=== PATIENT | male | born 1950 | race Caucasian/White ===

== ENCOUNTER 2019-11-02 21:58 | Inpatient (IN) | payer MEDICARE ==
[~2019-11-02] VITALS: Ht 185.4 cm; Wt 125.2 kg
[2019-11-02] MEDS ORDERED: PANTOPRAZOLE IV PUSH 40 MG VIAL. IVP ONE ×3 (22:15→23:00)
[2019-11-02 22:30] LABS: BASO # 0.1 x10^3/uL (0.0-0.2); BASO % 1 % (0-3); EOS % 0 % (0-3); HEMATOCRIT 33.5 % (39.0-53.0); HEMOGLOBIN 11.5 g/dL (13.0-17.5); LYMPH # 2.5 x10^3/uL (1.0-4.8); LYMPH % 28 % (24-48); MEAN CORPUSCULAR HEMOGLOBIN 29 pg (25-35); MEAN CORPUSCULAR HGB CONC 34 g/dL (31-37); MEAN CORPUSCULAR VOLUME 84 fL (79-100); MONO # 0.5 x10^3/uL (0.0-1.1); MONO % 6 % (0-9); NEUT % 66 % (31-73); PLATELET COUNT 203 x10^3/uL (140-400)
[2019-11-02 22:39] LABS: CALCIUM 8.4 mg/dL (8.5-10.1); CREATININE 0.9 mg/dL (0.7-1.3); GFR 83.9; POTASSIUM 4.3 mmol/L (3.5-5.1)
[2019-11-02 22:42] LABS: PROTHROMBIN TIME PATIENT 14.3 SEC (11.7-14.0)
[2019-11-02 22:46] LABS: ALBUMIN 3.4 g/dL (3.4-5.0); ALBUMIN/GLOBULIN RATIO 1.2 (1.0-1.7); TOTAL BILIRUBIN 0.4 mg/dL (0.2-1.0); TOTAL PROTEIN 6.2 g/dL (6.4-8.2)
--- NOTE | 2019-11-02 22:47 | PHYS DOC ---
General Adult EDM: Chief Complaint: TARRY STOOL HPI: HPI: Patient is a 68 year old male with a past medical history hypertension hyperlipidemia ulcers presents for evaluation of dark black stools. Patient states onset of dark stools approximately 3 to 4 hours ago. Patient states had associated dizziness. Patient does admit to using pain medications this morning but states to his knowledge it was not an NSAID. Review of Systems: Review of Systems: Constitutional: Denies fever or chills. [] Eyes: Denies change in visual acuity. [] HENT: Denies nasal congestion or sore throat. [] Respiratory: Denies cough or shortness of breath. [] Cardiovascular: Denies chest pain or edema. [] GI: Denies abdominal pain, , vomiting, bloody stools positive nausea : Denies dysuria. [] Musculoskeletal: Denies back pain or joint pain. [] Integument: Denies rash. [] Neurologic: Denies headache, focal weakness or sensory changes. [] Endocrine: Denies polyuria or polydipsia. [] Lymphatic: Denies swollen glands. [] Psychiatric: Denies depression or anxiety. [] Heart Score: Risk Factors: Risk Factors: DM, Current or recent (<one month) smoker, HTN, HLP, family h istory of CAD, obesity. Risk Scores: Score 0 - 3: 2.5% MACE over next 6 weeks - Discharge Home Score 4 - 6: 20.3% MACE over next 6 weeks - Admit for Clinical Observation Score 7 - 10: 72.7% MACE over next 6 weeks - Early Invasive Strategies Current Medications: Current Medications Medications (Trade) Dose Ordered Sig/Juan C Start Time Stop Time Status Last Admin Dose Admin Pantoprazole Sodium (PROTONIX VIAL for IV PUSH) 80 mg 1X ONCE 11/02/19 23:00 11/02/19 23:01 Pantoprazole Sodium 80 mg/ Sodium Chloride 100 ml @ 10 mls/hr Q10H 11/02/19 23:00 11/03/19 22:59 Allergies: Allergies: Allergies Coded Allergies Type Severity Reaction Last Updated Verified No Known Drug Allergies 11/02/19 No Physical Exam: PE: Constitutional: Well developed, well nourished, no acute distress, non-toxic appearance. [] HENT: Normocephalic, atraumatic, bilateral external ears normal, oropharynx moist, no oral exudates, nose normal. [] Eyes: PERRLA, EOMI, conjunctiva normal, no discharge. [] Neck: Normal range of motion, no tenderness, supple, no stridor. [] Cardiovascular:Heart rate regular rhythm, no murmur [] Lungs & Thorax: Bilateral breath sounds clear to auscultation [] Abdomen: Bowel sounds normal, soft, no tenderness, no masses, no pulsatile m asses. [] Skin: Warm, dry, no erythema, no rash. [] Back: No tenderness, no CVA tenderness. [] Extremities: No tenderness, no cyanosis, no clubbing, ROM intact, no edema. [] Neurologic: Alert and oriented X 3, normal motor function, normal sensory function, no focal deficits noted. [] Psychologic: Affect normal, judgement normal, mood normal. [] Current Patient Data: Labs: Laboratory Tests Test 11/02/19 22:12 White Blood Count 9.0 x10^3/uL (4.0-11.0) Red Blood Count 4.00 x10^6/uL (4.30-5.70) L Hemoglobin 11.5 g/dL (13.0-17.5) L Hematocrit 33.5 % (39.0-53.0) L Mean Corpuscular Volume 84 fL (79-100) Mean Corpuscular Hemoglobin 29 pg (25-35) Mean Corpuscular Hemoglobin Concent 34 g/dL (31-37) Red Cell Distribution Width 14.0 % (11.5-14.5) Platelet Count 203 x10^3/uL (140-400) Neutrophils (%) (Auto) 66 % (31-73) Lymphocytes (%) (Auto) 28 % (24-48) Monocytes (%) (Auto) 6 % (0-9) Eosinophils (%) (Auto) 0 % (0-3) Basophils (%) (Auto) 1 % (0-3) Neutrophils # (Auto) 6.0 x10^3/uL (1.8-7.7) Lymphocytes # (Auto) 2.5 x10^3/uL (1.0-4.8) Monocytes # (Auto) 0.5 x10^3/uL (0.0-1.1) Eosinophils # (Auto) 0.0 x10^3/uL (0.0-0.7) Basophils # (Auto) 0.1 x10^3/uL (0.0-0.2) Sodium Level 144 mmol/L (136-145) Potassium Level 4.3 mmol/L (3.5-5.1) Chloride Level 109 mmol/L (98-107) H Carbon Dioxide Level 25 mmol/L (21-32) Anion Gap 10 (6-14) Blood Urea Nitrogen 46 mg/dL (8-26) H Creatinine 0.9 mg/dL (0.7-1.3) Estimated GFR (Cockcroft-Gault) 83.9 BUN/Creatinine Ratio 51 (6-20) H Glucose Level 154 mg/dL (70-99) H Calcium Level 8.4 mg/dL (8.5-10.1) L Total Bilirubin Pending Aspartate Amino Transferase (AST) Pending Alanine Aminotransferase (ALT) Pending Alkaline Phosphatase Pending Total Protein Pending Albumin Pending Albumin/Globulin Ratio Pending Laboratory Tests 11/02/19 22:12 Laboratory Tests 11/02/19 22:12 EKG: EKG: [] Radiology/Procedures: Radiology/Procedures: [] Course & Med Decision Making: Course & Med Decision Making Pertinent Labs and Imaging studies reviewed. (See chart for details) [] Patient was evaluated for chief complaint. Work-up consisted of laboratory analysis. Results reviewed and discussed with patient. Treatment included Protonix. Patient admitted to the hospital for further evaluation and treatment. Dragon Disclaimer: Salima Disclaimer: This electronic medical record was generated, in whole or in part, using a voice recognition dictation system. Departure Departure Impression: Primary Impression: GI bleed Disposition: ADMITTED INPATIENT Condition: STABLE Justicifation of Admission Dx: Justifications for Admission: Justification of Admission Dx: Yes Comments: GI BLEED MARIA ISABEL FANG I DO Nov 02, 2019 22:47
[2019-11-02] MEDS: IV NORMAL SALINE 1000ML BAG 1,000 ML IV SCH (22:48)
[2019-11-02 22:52] LABS: FECAL OB PT POSITIVE (NEG)
[2019-11-02] MEDS: PANTOPRAZOLE SODIUM IV DRIP 80 MG in IV NORMAL SALINE 100ML 100 ML IV SCH (22:53)
[2019-11-02] MEDS ORDERED: ONDANSETRON PF 4 MG/2 ML VIAL. IV PRN (23:00)
[2019-11-02] MEDS ORDERED: ONDANSETRON PF 4 MG/2 ML VIAL. IVP ONE (23:00)
--- NOTE | 2019-11-02 23:50 | NUR ---
The patient, ANDREA JACOBSEN, 68 y/o, M admitted by LOU RYDER MD, was given written information regarding hospital policies, unit procedures and contact persons. Valuables were checked and left with him.
[2019-11-03] VITALS (7 sets, daily range): BP systolic 118–145; BP diastolic 57–98
[2019-11-03] MEDS ORDERED: TAMS0.4C97 PO (02:19)
[2019-11-03] MEDS ORDERED: AMLO10TA8 PO (02:19)
[2019-11-03] MEDS ORDERED: PRAV20TA2 PO (02:19)
[2019-11-03] MEDS ORDERED: FINA5TAB4 PO (02:19)
[2019-11-03 05:51] LABS: BASO % 0 % (0-3); EOS % 0 % (0-3); HEMATOCRIT 31.8 % (39.0-53.0); HEMOGLOBIN 10.9 g/dL (13.0-17.5); LYMPH # 2.8 x10^3/uL (1.0-4.8); LYMPH % 26 % (24-48); MEAN CORPUSCULAR HEMOGLOBIN 29 pg (25-35); MEAN CORPUSCULAR HGB CONC 34 g/dL (31-37); MEAN CORPUSCULAR VOLUME 84 fL (79-100); MONO # 0.6 x10^3/uL (0.0-1.1); MONO % 5 % (0-9); NEUT # 7.6 x10^3/uL (1.8-7.7); NEUT % 69 % (31-73); PLATELET COUNT 205 x10^3/uL (140-400); RED BLOOD COUNT 3.78 x10^6/uL (4.30-5.70); RED CELL DISTRIBUTION WIDTH 14.4 % (11.5-14.5)
[2019-11-03 06:24] LABS: ALBUMIN 3.2 g/dL (3.4-5.0); ALBUMIN/GLOBULIN RATIO 1.2 (1.0-1.7); CALCIUM 8.4 mg/dL (8.5-10.1); CREATININE 0.9 mg/dL (0.7-1.3); GFR 83.9; POTASSIUM 4.4 mmol/L (3.5-5.1); TOTAL BILIRUBIN 0.3 mg/dL (0.2-1.0); TOTAL PROTEIN 5.9 g/dL (6.4-8.2)
--- NOTE | 2019-11-03 08:34 | PDOC1 ---
History and Physical Date of Admission Date of Admission DATE: 11/03/19 TIME: 08:33 Identification/Chief Complaint Chief Complaint seen in er with heme pos stools, 68 year old male with a past medical history hypertension hyperlipidemia ulcers seen for evaluation of dark black stools. // dark stools approximately 3 to 4 hours [facility] Patient states had associated dizziness. Symptoms similar to past ulcers -, DISCOMFORT Past Medical History Cardiovascular: HTN GI: GERD, Peptic Ulcer disease Family History Family History: Hypertension Social History Smoke: <1 pack per day ALCOHOL: occassional Drugs: None Current Problem List Problem List Problems Medical Problems: (1) GI bleed Status: Acute Current Medications Current Medications Current Medications Pantoprazole Sodium (PROTONIX VIAL for IV PUSH) 40 mg 1X ONCE IVP ; Start 11/02/19 at 22:15; Stop 11/02/19 at 22:16; Status UNV Pantoprazole Sodium 80 mg/ Sodium Chloride 100 ml @ 10 mls/hr Q10H IV Last administered on 11/02/19at 22:53; Start 11/02/19 at 23:00; Stop 11/03/19 at 22:59 Pantoprazole Sodium (PROTONIX VIAL for IV PUSH) 40 mg 1X ONCE IVP ; Start 11/02/19 at 22:15; Stop 11/02/19 at 22:16; Status UNV Pantoprazole Sodium (PROTONIX VIAL for IV PUSH) 80 mg 1X ONCE IVP Last adminis tered on 11/02/19at 22:54; Start 11/02/19 at 23:00; Stop 11/02/19 at 23:01; Status DC Ondansetron HCl (Zofran) 4 mg PRN Q8HRS PRN IV NAUSEA/VOMITING 1ST CHOICE; Start 11/02/19 at 23:00; Stop 11/03/19 at 22:59 Sodium Chloride 1,000 ml @ 75 mls/hr [id number] IV Last administered on 11/02/19at 22:48; Start 11/02/19 at 22:48; Stop 11/03/19 at 22:47 Ondansetron HCl (Zofran) 4 mg 1X ONCE IVP Last administered on 11/02/19at 23:02; Start 11/02/19 at 23:00; Stop 11/02/19 at 23:01; Status DC Active Scripts Active Reported Flomax (Tamsulosin Hcl) 0.4 Mg Cap.er.24h 1 Cap PO DAILY Finasteride 5 Mg Tablet 1 Tab PO DAILY Pravastatin Sodium 20 Mg Tablet 1 Tab PO DAILY Amlodipine Besylate 10 Mg Tablet 10 Mg PO DAILY Allergies Allergies: Coded Allergies: No Known Drug Allergies (Unverified , 11/03/19) ROS Review of System Constitutional: Denies fever or chills. [] Eyes: Denies change in visual acuity. [] HENT: Denies nasal congestion or sore throat. [] Respiratory: Denies cough or shortness of breath. [] Cardiovascular: Denies chest pain or edema. [] GI: Denies abdominal pain, , vomiting, bloody stools positive nausea : Denies dysuria. [] Musculoskeletal: Denies back pain or joint pain. [] Integument: Denies rash. [] Neurologic: Denies headache, focal weakness or sensory changes. [] Endocrine: Denies polyuria or polydipsia. [] Lymphatic: Denies swollen glands. [] Psychiatric: Denies depression or anxiety. [] 14 PT ROS OTHERWISE NEG Respiratory: No: Cough, Hemoptysis, Orthopnea, Pleuritic Pain, Shortness of breath, SOB with excertion, Sputum Changes, Stridor, Tachypnea, Wheezing, Other Cardiovascular: No Chest Pain, No Palpitations, No Orthopnea, No Paroxysmal Noc. Dyspnea, No Edema, No Lt Headedness, No Other Gastrointestinal: Yes Abdominal Pain, Yes Hematochezia Physical Exam Physical Exam Constitutional: Well developed, well nourished, no acute distress, non-toxic a ppearance. [] HENT: Normocephalic, atraumatic, bilateral external ears normal, oropharynx moist, no oral exudates, nose normal. [] Eyes: PERRLA, EOMI, conjunctiva normal, no discharge. [] Neck: Normal range of motion, no tenderness, supple, no stridor. [] Cardiovascular:Heart rate regular rhythm, no murmur [] Lungs & Thorax: Bilateral breath sounds clear to auscultation [] Abdomen: Bowel sounds normal, soft, no tenderness, no masses, no pulsatile masses. [] Skin: Warm, dry, no erythema, no rash. [] Back: No tenderness, no CVA tenderness. [] Extremities: No tenderness, no cyanosis, no clubbing, ROM intact, no edema. [] Neurologic: Alert and oriented X 3, normal motor function, normal sensory function, no focal deficits noted. [] Psychologic: Affect normal, judgment normal, mood normal. [] General: Alert, Oriented X3, Cooperative, No acute distress HEENT: Atraumatic, EOMI, Mucous membr. moist/pink Heart: RRR, no gallops Abdomen: Normal bowel sounds, Soft, No tenderness Rectal Exam: deferred PELVIC: Examination not indicated Extremities: No cyanosis Neuro: Normal speech, Strength at 5/5 X4 ext, Sensation intact, Cranial nerves 3-12 NL Psych/Mental Status: Mental status NL, Mood NL Vitals Vitals Vital Signs Date Time Temp Pulse Resp B/P (MAP) Pulse Ox O2 Delivery O2 Flow Rate FiO2 11/03/19 07:00 98.2 80 18 132/98 (109) 98 Room Air 98.2 Labs Labs Laboratory Tests Test 11/02/19 22:12 11/02/19 22:38 11/03/19 05:05 White Blood Count 9.0 x10^3/uL (4.0-11.0) 11.0 x10^3/uL (4.0-11.0) Red Blood Count 4.00 x10^6/uL (4.30-5.70) 3.78 x10^6/uL (4.30-5.70) Hemoglobin 11.5 g/dL (13.0-17.5) 10.9 g/dL (13.0-17.5) Hematocrit 33.5 % (39.0-53.0) 31.8 % (39.0-53.0) Mean Corpuscular Volume 84 fL (79-100) 84 fL (79-100) Mean Corpuscular Hemoglobin 29 pg (25-35) 29 pg (25-35) Mean Corpuscular Hemoglobin Concent 34 g/dL (31-37) 34 g/dL (31-37) Red Cell Distribution Width 14.0 % (11.5-14.5) 14.4 % (11.5-14.5) Platelet Count 203 x10^3/uL (140-400) 205 x10^3/uL (140-400) Neutrophils (%) (Auto) 66 % (31-73) 69 % (31-73) Lymphocytes (%) (Auto) 28 % (24-48) 26 % (24-48) Monocytes (%) (Auto) 6 % (0-9) 5 % (0-9) Eosinophils (%) (Auto) 0 % (0-3) 0 % (0-3) Basophils (%) (Auto) 1 % (0-3) 0 % (0-3) Neutrophils # (Auto) 6.0 x10^3/uL (1.8-7.7) 7.6 x10^3/uL (1.8-7.7) Lymphocytes # (Auto) 2.5 x10^3/uL (1.0-4.8) 2.8 x10^3/uL (1.0-4.8) Monocytes # (Auto) 0.5 x10^3/uL (0.0-1.1) 0.6 x10^3/uL (0.0-1.1) Eosinophils # (Auto) 0.0 x10^3/uL (0.0-0.7) 0.0 x10^3/uL (0.0-0.7) Basophils # (Auto) 0.1 x10^3/uL (0.0-0.2) 0.0 x10^3/uL (0.0-0.2) Prothrombin Time 14.3 SEC (11.7-14.0) Prothromb Time International Ratio 1.2 (0.8-1.1) Activated Partial Thromboplast Time 21 SEC (24-38) Sodium Level 144 mmol/L (136-145) 145 mmol/L (136-145) Potassium Level 4.3 mmol/L (3.5-5.1) 4.4 mmol/L (3.5-5.1) Chloride Level 109 mmol/L (98-107) 112 mmol/L (98-107) Carbon Dioxide Level 25 mmol/L (21-32) 25 mmol/L (21-32) Anion Gap 10 (6-14) 8 (6-14) Blood Urea Nitrogen 46 mg/dL (8-26) 43 mg/dL (8-26) Creatinine 0.9 mg/dL (0.7-1.3) 0.9 mg/dL (0.7-1.3) Estimated GFR (Cockcroft-Gault) 83.9 83.9 BUN/Creatinine Ratio 51 (6-20) 48 (6-20) Glucose Level 154 mg/dL (70-99) 122 mg/dL (70-99) Calcium Level 8.4 mg/dL (8.5-10.1) 8.4 mg/dL (8.5-10.1) Total Bilirubin 0.4 mg/dL (0.2-1.0) 0.3 mg/dL (0.2-1.0) Aspartate Amino Transf (AST/SGOT) 18 U/L (15-37) 15 U/L (15-37) Alanine Aminotransferase (ALT/SGPT) 28 U/L (16-63) 22 U/L (16-63) Alkaline Phosphatase 74 U/L (46-116) 63 U/L (46-116) Troponin I Quantitative < 0.017 ng/mL (0.000-0.055) Total Protein 6.2 g/dL (6.4-8.2) 5.9 g/dL (6.4-8.2) Albumin 3.4 g/dL (3.4-5.0) 3.2 g/dL (3.4-5.0) Albumin/Globulin Ratio 1.2 (1.0-1.7) 1.2 (1.0-1.7) Stool Occult Blood Positive (NEG) Laboratory Tests Test 11/02/19 22:12 11/02/19 22:38 11/03/19 05:05 White Blood Count 9.0 x10^3/uL (4.0-11.0) 11.0 x10^3/uL (4.0-11.0) Red Blood Count 4.00 x10^6/uL (4.30-5.70) 3.78 x10^6/uL (4.30-5.70) Hemoglobin 11.5 g/dL (13.0-17.5) 10.9 g/dL (13.0-17.5) Hematocrit 33.5 % (39.0-53.0) 31.8 % (39.0-53.0) Mean Corpuscular Volume 84 fL (79-100) 84 fL (79-100) Mean Corpuscular Hemoglobin 29 pg (25-35) 29 pg (25-35) Mean Corpuscular Hemoglobin Concent 34 g/dL (31-37) 34 g/dL (31-37) Red Cell Distribution Width 14.0 % (11.5-14.5) 14.4 % (11.5-14.5) Platelet Count 203 x10^3/uL (140-400) 205 x10^3/uL (140-400) Neutrophils (%) (Auto) 66 % (31-73) 69 % (31-73) Lymphocytes (%) (Auto) 28 % (24-48) 26 % (24-48) Monocytes (%) (Auto) 6 % (0-9) 5 % (0-9) Eosinophils (%) (Auto) 0 % (0-3) 0 % (0-3) Basophils (%) (Auto) 1 % (0-3) 0 % (0-3) Neutrophils # (Auto) 6.0 x10^3/uL (1.8-7.7) 7.6 x10^3/uL (1.8-7.7) Lymphocytes # (Auto) 2.5 x10^3/uL (1.0-4.8) 2.8 x10^3/uL (1.0-4.8) Monocytes # (Auto) 0.5 x10^3/uL (0.0-1.1) 0.6 x10^3/uL (0.0-1.1) Eosinophils # (Auto) 0.0 x10^3/uL (0.0-0.7) 0.0 x10^3/uL (0.0-0.7) Basophils # (Auto) 0.1 x10^3/uL (0.0-0.2) 0.0 x10^3/uL (0.0-0.2) Prothrombin Time 14.3 SEC (11.7-14.0) Prothromb Time International Ratio 1.2 (0.8-1.1) Activated Partial Thromboplast Time 21 SEC (24-38) Sodium Level 144 mmol/L (136-145) 145 mmol/L (136-145) Potassium Level 4.3 mmol/L (3.5-5.1) 4.4 mmol/L (3.5-5.1) Chloride Level 109 mmol/L (98-107) 112 mmol/L (98-107) Carbon Dioxide Level 25 mmol/L (21-32) 25 mmol/L (21-32) Anion Gap 10 (6-14) 8 (6-14) Blood Urea Nitrogen 46 mg/dL (8-26) 43 mg/dL (8-26) Creatinine 0.9 mg/dL (0.7-1.3) 0.9 mg/dL (0.7-1.3) Estimated GFR (Cockcroft-Gault) 83.9 83.9 BUN/Creatinine Ratio 51 (6-20) 48 (6-20) Glucose Level 154 mg/dL (70-99) 122 mg/dL (70-99) Calcium Level 8.4 mg/dL (8.5-10.1) 8.4 mg/dL (8.5-10.1) Total Bilirubin 0.4 mg/dL (0.2-1.0) 0.3 mg/dL (0.2-1.0) Aspartate Amino Transf (AST/SGOT) 18 U/L (15-37) 15 U/L (15-37) Alanine Aminotransferase (ALT/SGPT) 28 U/L (16-63) 22 U/L (16-63) Alkaline Phosphatase 74 U/L (46-116) 63 U/L (46-116) Troponin I Quantitative < 0.017 ng/mL (0.000-0.055) Total Protein 6.2 g/dL (6.4-8.2) 5.9 g/dL (6.4-8.2) Albumin 3.4 g/dL (3.4-5.0) 3.2 g/dL (3.4-5.0) Albumin/Globulin Ratio 1.2 (1.0-1.7) 1.2 (1.0-1.7) Stool Occult Blood Positive (NEG) Images Images DPOA REVIEW 19 MIN What Is a Power of Gyroscopic Instrument Tester? A power of research attorney (POA) is a legal document giving one person (the agent or [id number]) the power to act for another person (the principal). The agent can have broad legal authority or limited authority to make legal decisions about the principal's property, finances or medical care. The power of research attorney is frequently used in the event of a principal's illness or disability, or when the principal can't be present to sign necessary legal documents for financial transactions. A power of research attorney can end for a number of reasons, such as when the principal dies, the principal revokes it, a court invalidates it, the principal divorces their spouse, who happens to be the agent, or the agent can no longer carry out the outlined responsibilities. Conventional POAs lapse when the creator becomes incapacitated, but a durable POA remains in force to enable the agent to manage the creators affairs, and a springing POA comes into effect only if and when the creator of the POA becomes incapacitated. A medical or healthcare POA enables an agent to make medical decisions on behalf of an incapacitated person. Gerard Takeaways A power of research attorney (POA) is a legal document giving one person, the agent or [id number] the power to act for another person, the principal. The agent can have broad legal authority or limited authority to make decisions about the principal's property, finances or medical care. The power of research attorney is often used when a principal becomes ill or disabled, or when they can't be present to sign necessary legal documents for financial transactions. Understanding Power of Gyroscopic Instrument Tester A power of research attorney should be considered when planning for long-term care. There are different types of POAs that fall under either a general power of research attorney or limited power of research attorney. A general power of research attorney acts on behalf of the principal in any and all matters, as allowed by the state. The agent under a general POA agreement may be authorized to take care of issues such as handling bank accounts, signing checks, selling property and assets like stocks, f A limited power of research attorney gives the agent the power to act on behalf of the principal in specific matters or events. For example, the limited POA may explicitly state that the agent is only allowed to manage the principal's snf accounts. A limited POA may also be limited to a specific period of time (e.g., if the principal will be out of the country for, say, two years). Most wallace of research attorney documents allow an agent to represent the principal in all property and financial matters as long as the principals mental state of mind is good. If a situation occurs where the principal becomes incapable of making decisions for him or herself, the POA agreement would automatically end. However, someone who wants the POA to remain in effect after the persons health deteriorates would need to sign a durable power of research attorney (DPOA). What is an advance directive? An advance directive is a legal document that says how you want to be cared for if you are unable to make decisions. You can include what medical treatments you would want and who you would trust to make decisions for you. An advance directive can also include other legal documents. A living will is a list of treatment preferences. It can be used to indicate whether you would want cardiopulmonary resuscitation (CPR), tube feedings, a breathing machine, or certain medicines, like antibiotics. The durable power of research attorney for health care document identifies the person you would want to make medical decisions for you. This person is also called a proxy. Your proxy should be familiar with your values and wishes. How do I get started? You can get advance directive documents for your state from your doctor's office or from http://www.caringinfo.org. Review the forms, and ask your doctor if you have any questions. Pick a person to be your proxy, and talk it over with that person. gastric ulcer s/p bx/ERBE APC laser duodenal polyp s/p bx Plan PPI therapy for two months Operative Note Operative Note Operative Note EGD with biopsy/APC laser Meds Propofol per anesthesia Pre-op dx melena /acute blood loss anemia post-op dx gastric ulcer s/p bx/ERBE APC laser duodenal polyp s/p bx Plan PPI therapy for two months advance diet in am if Hg stable Serial Hgs AGNIESZKA ACUNA MD VTE Prophylaxis Ordered VTE Prophylaxis Devices: Yes VTE Pharmacological Prophylaxi: Contraindicated Assessment/Plan Assessment/Plan Impression: GI bleed, acute gastric ulcer s/p bx/ERBE APC laser duodenal polyp s/p bx PPI therapy for two months MORBID OBESITY TOBACCO ABUSE DISORDER ACUTE BLOOD LOSS ANEMIA ADMITTED EGD IV PROTONIX gi consult NPO 67 MIN PT EXAM, CHART REVIEW, > 50% OF TIME SPENT WITH EXAM, CHART REVIEW, PT CARE COORDINATION Justifications for Admission Other Justification FULBRIGHT,DEYSI W MD Nov 03, 2019 08:34
[2019-11-03] MEDS ORDERED: IV RINGERS,LACTATED 1000ML 1,000 ML IV ONE (09:15)
[2019-11-03] MEDS: PANTOPRAZOLE SODIUM IV DRIP 80 MG in IV NORMAL SALINE 100ML 100 ML IV SCH ×2 (09:20→19:49)
--- NOTE | 2019-11-03 09:26 | PDOC2 ---
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 Reports some sharp right upper back pain that felt like a kidney stone and vague mid abdomen discomfort x 2 days, then yesterday noted some dark stools and had some dark emesis. Symptoms similar to past ulcers - first in [place] in 1970s, says almost needed surgery but resolved with medication. Recurred in 1988 in [place] - required transfusion and "they didn't want to biopsy it and said I might need surgery" but again resolved w/ medication. Recurred a third time in 1998 in [place] - this time he had a "bacteria" (?H. pylori) that was treated w/ medication. He was also started on an acid pill which he has taken every day since. Initially ranitidine, then ch anged to Tagamet. H/o GERD controlled w/ H2 sung. No dysphagia, chronic n/v or abd pain, diarrhea, constipation, change in appetite. Has gained weight. Normal colonoscopy at some point. No GB, liver, or pancreas history. Occasional ibuprofen and something else OTC for aches and pains. Admitting Hgb 11.5 (now 10.9), MCV 84, normal plt and INR, BUN 46 (now 43), +Hemoccult. No imaging. PMH: PMH: HTN, ROBERT w/ CPAP, nephrolithiasis, HLD, BPH, COVID, GERD, PUD lithotripsy, ureteral stent FH: Family History: Cancer (dfather - bladder cancer; brothers - prostate, lung, and unknown type), CAD Social History: Smoke: <1 pack per day ALCOHOL: occassional Drugs: None ROS: GEN: Denies fevers, chills, sweats HEENT: Denies blurred vision, sore throat CV: Denies chest pain RESP: Denies shortness of air, cough GI: Per HPI : Denies hematuria, dysuria ENDO: +weight gain NEURO: Denies confusion, dizziness MSK: Denies weakness, joint pain/swelling SKIN: Denies jaundice, pruritus Vitals: Vitals: Vital Signs Date Time Temp Pulse Resp B/P (MAP) Pulse Ox O2 Delivery O2 Flow Rate FiO2 11/03/19 09:07 Room Air 11/03/19 07:00 98.2 80 18 132/98 (109) 98 98.2 Labs: Labs: Laboratory Tests Test 11/02/19 22:12 11/02/19 22:38 11/03/19 05:05 11/03/19 08:25 White Blood Count 9.0 x10^3/uL (4.0-11.0) 11.0 x10^3/uL (4.0-11.0) Red Blood Count 4.00 x10^6/uL (4.30-5.70) 3.78 x10^6/uL (4.30-5.70) Hemoglobin 11.5 g/dL (13.0-17.5) 10.9 g/dL (13.0-17.5) Hematocrit 33.5 % (39.0-53.0) 31.8 % (39.0-53.0) Mean Corpuscular Volume 84 fL (79-100) 84 fL (79-100) Mean Corpuscular Hemoglobin 29 pg (25-35) 29 pg (25-35) Mean Corpuscular Hemoglobin Concent 34 g/dL (31-37) 34 g/dL (31-37) Red Cell Distribution Width 14.0 % (11.5-14.5) 14.4 % (11.5-14.5) Platelet Count 203 x10^3/uL (140-400) 205 x10^3/uL (140-400) Neutrophils (%) (Auto) 66 % (31-73) 69 % (31-73) Lymphocytes (%) (Auto) 28 % (24-48) 26 % (24-48) Monocytes (%) (Auto) 6 % (0-9) 5 % (0-9) Eosinophils (%) (Auto) 0 % (0-3) 0 % (0-3) Basophils (%) (Auto) 1 % (0-3) 0 % (0-3) Neutrophils # (Auto) 6.0 x10^3/uL (1.8-7.7) 7.6 x10^3/uL (1.8-7.7) Lymphocytes # (Auto) 2.5 x10^3/uL (1.0-4.8) 2.8 x10^3/uL (1.0-4.8) Monocytes # (Auto) 0.5 x10^3/uL (0.0-1.1) 0.6 x10^3/uL (0.0-1.1) Eosinophils # (Auto) 0.0 x10^3/uL (0.0-0.7) 0.0 x10^3/uL (0.0-0.7) Basophils # (Auto) 0.1 x10^3/uL (0.0-0.2) 0.0 x10^3/uL (0.0-0.2) Prothrombin Time 14.3 SEC (11.7-14.0) Prothromb Time International Ratio 1.2 (0.8-1.1) Activated Partial Thromboplast Time 21 SEC (24-38) Sodium Level 144 mmol/L (136-145) 145 mmol/L (136-145) Potassium Level 4.3 mmol/L (3.5-5.1) 4.4 mmol/L (3.5-5.1) Chloride Level 109 mmol/L (98-107) 112 mmol/L (98-107) Carbon Dioxide Level 25 mmol/L (21-32) 25 mmol/L (21-32) Anion Gap 10 (6-14) 8 (6-14) Blood Urea Nitrogen 46 mg/dL (8-26) 43 mg/dL (8-26) Creatinine 0.9 mg/dL (0.7-1.3) 0.9 mg/dL (0.7-1.3) Estimated GFR (Cockcroft-Gault) 83.9 83.9 BUN/Creatinine Ratio 51 (6-20) 48 (6-20) Glucose Level 154 mg/dL (70-99) 122 mg/dL (70-99) Calcium Level 8.4 mg/dL (8.5-10.1) 8.4 mg/dL (8.5-10.1) Total Bilirubin 0.4 mg/dL (0.2-1.0) 0.3 mg/dL (0.2-1.0) Aspartate Amino Transf (AST/SGOT) 18 U/L (15-37) 15 U/L (15-37) Alanine Aminotransferase (ALT/SGPT) 28 U/L (16-63) 22 U/L (16-63) Alkaline Phosphatase 74 U/L (46-116) 63 U/L (46-116) Troponin I Quantitative < 0.017 ng/mL (0.000-0.055) Total Protein 6.2 g/dL (6.4-8.2) 5.9 g/dL (6.4-8.2) Albumin 3.4 g/dL (3.4-5.0) 3.2 g/dL (3.4-5.0) Albumin/Globulin Ratio 1.2 (1.0-1.7) 1.2 (1.0-1.7) Stool Occult Blood Positive (NEG) SARS-CoV-2 Antigen (Rapid) Negative (NEGATIVE) Allergies: Coded Allergies: No Known Drug Allergies (Unverified , 11/03/19) Medications: Current Medications Medications (Trade) Dose Ordered Sig/Juan C Route PRN Reason Start Time Stop Time Status Last Admin Dose Admin Pantoprazole Sodium 80 mg/ Sodium Chloride 100 ml @ 10 mls/hr Q10H IV 11/02/19 23:00 11/03/19 22:59 11/02/19 22:53 Pantoprazole Sodium (PROTONIX VIAL for IV PUSH) 80 mg 1X ONCE IVP 11/02/19 23:00 11/02/19 23:01 DC 11/02/19 22:54 Sodium Chloride 1,000 ml @ 75 mls/hr [id number] IV 11/02/19 22:48 11/03/19 22:47 11/02/19 22:48 Ondansetron HCl (Zofran) 4 mg 1X ONCE IVP 11/02/19 23:00 11/02/19 23:01 DC 11/02/19 23:02 Imaging: Imaging: - PE: GEN: NAD HEENT: Atraumatic, PERRL LUNGS: CTAB HEART: RRR ABD: NABS, S/NT, round EXTREMITY: No edema SKIN: No rashes, no jaundice NEURO/PSYCH: A & O 3 A/P: A/P: Melena, coffee-ground emesis Anemia, elevated BUN H/o PUD (and sounds like H. pylori), GERD CRC screen - done in the past H/o COVID-19 -- NPO for EGD this morning pending COVID swab. Agree w/ PPI. REX COMER Nov 03, 2019 09:26
--- NOTE | 2019-11-03 09:36 | NUR ---
SW following. Discussed with RN, pt from [place], room air, NPO. Pt having an EGD today, if clear - possible discharge home. RN advised no SW needs at this time, SW will continue to follow.
[2019-11-03] MEDS ORDERED: PROPOFOL 10 MG/ML (20ML) VIAL. IV ONE (09:59)
--- NOTE | 2019-11-03 10:25 | PDOC4 ---
Operative Note Operative Note EGD with biopsy/APC laser Meds Propofol per anesthesia Pre-op dx melena /acute blood loss anemia post-op dx gastric ulcer s/p bx/ERBE APC laser duodenal polyp s/p bx Plan PPI therapy for two months advance diet in am if Hg stable Serial Hgs AGNIESZKA ACUNA MD Nov 03, 2019 10:25
[2019-11-03] MEDS ORDERED: ZOLPIDEM 5 MG TABLET. PO PRN (12:00)
[2019-11-03] MEDS ORDERED: 0.9 % SODIUM CHLORIDE 10 ML DISP.SYRIN. IV PRN (12:00)
[2019-11-03] MEDS ORDERED: DOCUSATE SODIUM 100 MG CAPSULE. PO PRN (12:00)
[2019-11-03] MEDS ORDERED: diphenhydrAMINE 50 MG/ML VIAL IVP PRN (12:00)
[2019-11-03] MEDS ORDERED: guaiFENesin ORAL 200 MG/10 ML LIQUID. PO PRN (12:00)
[2019-11-03] MEDS ORDERED: LORazepam 0.5 MG TABLET PO PRN (12:00)
[2019-11-03] MEDS ORDERED: ONDANSETRON PF 4 MG/2 ML VIAL. IV PRN (12:00)
[2019-11-03] MEDS ORDERED: cloNIDine HCL 0.1 MG TABLET PO PRN (12:00)
[2019-11-03] MEDS ORDERED: ALBUTEROL SULFATE 2.5 MG/3 ML NEBU. NEB PRN (12:00)
[2019-11-03] MEDS ORDERED: SODIUM PHOSPHATES 19/7GM 133 ML ENEMA. PR PRN (12:00)
[2019-11-03] MEDS: IV NORMAL SALINE 1000ML BAG 1,000 ML IV SCH ×3 (12:08→22:43)
[2019-11-03] MEDS: TAMSULOSIN 0.4 MG CAP.ER.24H. PO SCH (13:33)
[2019-11-03] MEDS: FINASTERIDE 5 MG TABLET. PO SCH (13:33)
[2019-11-03] MEDS: amLODIPine BESYLATE 10 MG TABLET PO SCH (13:34)
[2019-11-03] MEDS: ATORVASTATIN CALCIUM 10 MG TABLET. PO SCH (19:52)
[2019-11-04 03:00] VITALS: BP 132/50
[2019-11-04 07:20] LABS: BASO % 0 % (0-3); EOS # 0.1 x10^3/uL (0.0-0.7); EOS % 1 % (0-3); HEMATOCRIT 25.2 % (39.0-53.0); HEMOGLOBIN 8.6 g/dL (13.0-17.5); LYMPH # 2.5 x10^3/uL (1.0-4.8); LYMPH % 33 % (24-48); MEAN CORPUSCULAR HEMOGLOBIN 29 pg (25-35); MEAN CORPUSCULAR HGB CONC 34 g/dL (31-37); MEAN CORPUSCULAR VOLUME 85 fL (79-100); MONO # 0.4 x10^3/uL (0.0-1.1); MONO % 5 % (0-9); NEUT # 4.6 x10^3/uL (1.8-7.7); NEUT % 61 % (31-73); PLATELET COUNT 153 x10^3/uL (140-400); RED BLOOD COUNT 2.98 x10^6/uL (4.30-5.70); RED CELL DISTRIBUTION WIDTH 14.4 % (11.5-14.5); WHITE BLOOD COUNT 7.6 x10^3/uL (4.0-11.0)
[2019-11-04] MEDS: IV NORMAL SALINE 1000ML BAG 1,000 ML IV SCH ×2 (07:34→17:31)
[2019-11-04 07:44] LABS: ALBUMIN 2.9 g/dL (3.4-5.0); ALBUMIN/GLOBULIN RATIO 1.3 (1.0-1.7); CALCIUM 8.1 mg/dL (8.5-10.1); GFR 74.3; POTASSIUM 3.7 mmol/L (3.5-5.1); TOTAL BILIRUBIN 0.3 mg/dL (0.2-1.0); TOTAL PROTEIN 5.2 g/dL (6.4-8.2)
[2019-11-04 07:59] VITALS: BP 119/55
[2019-11-04] MEDS: TAMSULOSIN 0.4 MG CAP.ER.24H. PO SCH (08:35)
[2019-11-04] MEDS: amLODIPine BESYLATE 10 MG TABLET PO SCH (08:35)
[2019-11-04] MEDS: FINASTERIDE 5 MG TABLET. PO SCH (08:35)
[2019-11-04 10:05] VITALS: BP 105/49
--- NOTE | 2019-11-04 10:09 | PDOC ---
PROGRESS NOTES Date of Service: DATE: 11/04/19 TIME: 10:09 Chief Complaint Chief Complaint Operative Note Operative Note Operative Note EGD with biopsy/APC laser Meds Propofol per anesthesia Pre-op dx melena /acute blood loss anemia post-op dx gastric ulcer s/p bx/ERBE APC laser duodenal polyp s/p bx Plan PPI therapy for two months advance diet in am if Hg stable Serial Hgs AGNIESZKA ACUNA MD VTE Prophylaxis Ordered VTE Prophylaxis Devices: Yes VTE Pharmacological Prophylaxi: Contraindicated Assessment/Plan Assessment/Plan Impression: GI bleed, acute gastric ulcer s/p bx/ERBE APC laser duodenal polyp s/p bx PPI therapy for two months MORBID OBESITY TOBACCO ABUSE DISORDER ACUTE BLOOD LOSS ANEMIA 2 gm drop in hgb overnight 11/03 CHECK HGB NOW ADMITTED EGD IV PROTONIX gi consult ADAT AM CBC 27 MIN PT EXAM, CHART REVIEW, > 50% OF TIME SPENT WITH EXAM, CHART REVIEW, PT CARE COORDINATION History of Present Illness History of Present Illness Identification/Chief Complaint Chief Complaint seen in er with heme pos stools, 68 year old male with a past medical history hypertension hyperlipidemia ulcers seen for evaluation of dark black stools. 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 Symptoms similar to past ulcers -, DISCOMFORT Past Medical History Cardiovascular: HTN GI: GERD, Peptic Ulcer disease Family History Family History: Hypertension Social History Smoke: <1 pack per day ALCOHOL: occassional Drugs: None Current Problem List Problem List Problems Medical Problems: (1) GI bleed Status: Acute Vitals Vitals Vital Signs Date Time Temp Pulse Resp B/P (MAP) Pulse Ox O2 Delivery O2 Flow Rate FiO2 11/04/19 08:35 73 132/50 11/04/19 08:00 Room Air 11/04/19 07:59 98.0 18 97 98.0 11/03/19 10:20 4 Physical Exam General: Alert, Oriented X3, Cooperative, No acute distress Abdomen: Normal bowel sounds, Soft, No tenderness Extremities: No cyanosis Labs LABS Exam performed: One view chest. Indication: Reason: ANEMIA / Spl. Instructions: / History: Date of Service: 11/04/2019 10:13 AM Comparison: None available. Single AP upright portable view chest findings: Cardiomediastinal silhouette is within limits of normal. No acute infiltrates, effusion or pneumothorax is detected. The bony structures are normal. Impression: No acute cardiopulmonary process is detected. Electronically signed by: Neeta Fox MD (11/04/2019 11:14 AM) [id number] DICTATED and SIGNED BY: NEETA FOX MD DATE: 11/04/[address] abdomen and pelvis without contrast 11/04/2019. Reason for exam: Anemia. Helical noncontrast images were performed. Exposure: One or more of the following individualized dose reduction techniques were utilized for this examination: 1. Automated exposure control 2. Adjustment of the mA and/or kV according to patient size 3. Use of iterative reconstruction technique. FINDINGS: The lung bases are clear. The liver and spleen are homogeneous in density and normal in configuration. Evaluation of the solid organs is limited without IV contrast. The kidneys show no apparent solid mass or obstruction. There is a cyst in the mid left kidney. The adrenal glands are not enlarged. The pancreas appears normal. No retroperitoneal or mesenteric adenopathy is seen. There is no retroperitoneal blood. There is no apparent abdominal soft tissue mass or inflammatory process. A normal appendix is seen arising from the cecum. There is a fat-containing umbilical hernia. Images through the pelvis show no abnormality of the distal ureters or bladder. No pelvic or inguinal adenopathy is seen. There are fat-containing inguinal hernias bilaterally. The prostate appears enlarged. There is no pelvic hematoma or upper thigh hematoma visible. IMPRESSION: No acute normality. No apparent bleeding source or site. Electronically signed by: Leighann Yu Jr., MD (11/04/2019 11:06 AM) [id number] DICTATED and SIGNED BY: LEIGHANN YU Jr, MD DATE: 11/04/19 1106 Laboratory Tests Test 11/04/19 05:45 White Blood Count 7.6 x10^3/uL (4.0-11.0) Red Blood Count 2.98 x10^6/uL (4.30-5.70) Hemoglobin 8.6 g/dL (13.0-17.5) Hematocrit 25.2 % (39.0-53.0) Mean Corpuscular Volume 85 fL (79-100) Mean Corpuscular Hemoglobin 29 pg (25-35) Mean Corpuscular Hemoglobin Concent 34 g/dL (31-37) Red Cell Distribution Width 14.4 % (11.5-14.5) Platelet Count 153 x10^3/uL (140-400) Neutrophils (%) (Auto) 61 % (31-73) Lymphocytes (%) (Auto) 33 % (24-48) Monocytes (%) (Auto) 5 % (0-9) Eosinophils (%) (Auto) 1 % (0-3) Basophils (%) (Auto) 0 % (0-3) Neutrophils # (Auto) 4.6 x10^3/uL (1.8-7.7) Lymphocytes # (Auto) 2.5 x10^3/uL (1.0-4.8) Monocytes # (Auto) 0.4 x10^3/uL (0.0-1.1) Eosinophils # (Auto) 0.1 x10^3/uL (0.0-0.7) Basophils # (Auto) 0.0 x10^3/uL (0.0-0.2) Sodium Level 145 mmol/L (136-145) Potassium Level 3.7 mmol/L (3.5-5.1) Chloride Level 112 mmol/L (98-107) Carbon Dioxide Level 26 mmol/L (21-32) Anion Gap 7 (6-14) Blood Urea Nitrogen 24 mg/dL (8-26) Creatinine 1.0 mg/dL (0.7-1.3) Estimated GFR (Cockcroft-Gault) 74.3 BUN/Creatinine Ratio 24 (6-20) Glucose Level 113 mg/dL (70-99) Calcium Level 8.1 mg/dL (8.5-10.1) Total Bilirubin 0.3 mg/dL (0.2-1.0) Aspartate Amino Transf (AST/SGOT) 13 U/L (15-37) Alanine Aminotransferase (ALT/SGPT) 19 U/L (16-63) Alkaline Phosphatase 52 U/L (46-116) Total Protein 5.2 g/dL (6.4-8.2) Albumin 2.9 g/dL (3.4-5.0) Albumin/Globulin Ratio 1.3 (1.0-1.7) Assessment and Plan Assessmemt and Plan Problems Medical Problems: (1) GI bleed Status: Acute Comment Review of Relevant I have reviewed the following items selwyn (where applicable) has been applied. Labs Laboratory Tests Test 11/02/19 22:12 11/02/19 22:38 11/03/19 05:05 11/03/19 08:25 White Blood Count 9.0 x10^3/uL (4.0-11.0) 11.0 x10^3/uL (4.0-11.0) Red Blood Count 4.00 x10^6/uL (4.30-5.70) 3.78 x10^6/uL (4.30-5.70) Hemoglobin 11.5 g/dL (13.0-17.5) 10.9 g/dL (13.0-17.5) Hematocrit 33.5 % (39.0-53.0) 31.8 % (39.0-53.0) Mean Corpuscular Volume 84 fL (79-100) 84 fL (79-100) Mean Corpuscular Hemoglobin 29 pg (25-35) 29 pg (25-35) Mean Corpuscular Hemoglobin Concent 34 g/dL (31-37) 34 g/dL (31-37) Red Cell Distribution Width 14.0 % (11.5-14.5) 14.4 % (11.5-14.5) Platelet Count 203 x10^3/uL (140-400) 205 x10^3/uL (140-400) Neutrophils (%) (Auto) 66 % (31-73) 69 % (31-73) Lymphocytes (%) (Auto) 28 % (24-48) 26 % (24-48) Monocytes (%) (Auto) 6 % (0-9) 5 % (0-9) Eosinophils (%) (Auto) 0 % (0-3) 0 % (0-3) Basophils (%) (Auto) 1 % (0-3) 0 % (0-3) Neutrophils # (Auto) 6.0 x10^3/uL (1.8-7.7) 7.6 x10^3/uL (1.8-7.7) Lymphocytes # (Auto) 2.5 x10^3/uL (1.0-4.8) 2.8 x10^3/uL (1.0-4.8) Monocytes # (Auto) 0.5 x10^3/uL (0.0-1.1) 0.6 x10^3/uL (0.0-1.1) Eosinophils # (Auto) 0.0 x10^3/uL (0.0-0.7) 0.0 x10^3/uL (0.0-0.7) Basophils # (Auto) 0.1 x10^3/uL (0.0-0.2) 0.0 x10^3/uL (0.0-0.2) Prothrombin Time 14.3 SEC (11.7-14.0) Prothromb Time International Ratio 1.2 (0.8-1.1) Activated Partial Thromboplast Time 21 SEC (24-38) Sodium Level 144 mmol/L (136-145) 145 mmol/L (136-145) Potassium Level 4.3 mmol/L (3.5-5.1) 4.4 mmol/L (3.5-5.1) Chloride Level 109 mmol/L (98-107) 112 mmol/L (98-107) Carbon Dioxide Level 25 mmol/L (21-32) 25 mmol/L (21-32) Anion Gap 10 (6-14) 8 (6-14) Blood Urea Nitrogen 46 mg/dL (8-26) 43 mg/dL (8-26) Creatinine 0.9 mg/dL (0.7-1.3) 0.9 mg/dL (0.7-1.3) Estimated GFR (Cockcroft-Gault) 83.9 83.9 BUN/Creatinine Ratio 51 (6-20) 48 (6-20) Glucose Level 154 mg/dL (70-99) 122 mg/dL (70-99) Calcium Level 8.4 mg/dL (8.5-10.1) 8.4 mg/dL (8.5-10.1) Total Bilirubin 0.4 mg/dL (0.2-1.0) 0.3 mg/dL (0.2-1.0) Aspartate Amino Transf (AST/SGOT) 18 U/L (15-37) 15 U/L (15-37) Alanine Aminotransferase (ALT/SGPT) 28 U/L (16-63) 22 U/L (16-63) Alkaline Phosphatase 74 U/L (46-116) 63 U/L (46-116) Troponin I Quantitative < 0.017 ng/mL (0.000-0.055) Total Protein 6.2 g/dL (6.4-8.2) 5.9 g/dL (6.4-8.2) Albumin 3.4 g/dL (3.4-5.0) 3.2 g/dL (3.4-5.0) Albumin/Globulin Ratio 1.2 (1.0-1.7) 1.2 (1.0-1.7) Stool Occult Blood Positive (NEG) SARS-CoV-2 Antigen (Rapid) Negative (NEGATIVE) Test 11/04/19 05:45 White Blood Count 7.6 x10^3/uL (4.0-11.0) Red Blood Count 2.98 x10^6/uL (4.30-5.70) Hemoglobin 8.6 g/dL (13.0-17.5) Hematocrit 25.2 % (39.0-53.0) Mean Corpuscular Volume 85 fL (79-100) Mean Corpuscular Hemoglobin 29 pg (25-35) Mean Corpuscular Hemoglobin Concent 34 g/dL (31-37) Red Cell Distribution Width 14.4 % (11.5-14.5) Platelet Count 153 x10^3/uL (140-400) Neutrophils (%) (Auto) 61 % (31-73) Lymphocytes (%) (Auto) 33 % (24-48) Monocytes (%) (Auto) 5 % (0-9) Eosinophils (%) (Auto) 1 % (0-3) Basophils (%) (Auto) 0 % (0-3) Neutrophils # (Auto) 4.6 x10^3/uL (1.8-7.7) Lymphocytes # (Auto) 2.5 x10^3/uL (1.0-4.8) Monocytes # (Auto) 0.4 x10^3/uL (0.0-1.1) Eosinophils # (Auto) 0.1 x10^3/uL (0.0-0.7) Basophils # (Auto) 0.0 x10^3/uL (0.0-0.2) Sodium Level 145 mmol/L (136-145) Potassium Level 3.7 mmol/L (3.5-5.1) Chloride Level 112 mmol/L (98-107) Carbon Dioxide Level 26 mmol/L (21-32) Anion Gap 7 (6-14) Blood Urea Nitrogen 24 mg/dL (8-26) Creatinine 1.0 mg/dL (0.7-1.3) Estimated GFR (Cockcroft-Gault) 74.3 BUN/Creatinine Ratio 24 (6-20) Glucose Level 113 mg/dL (70-99) Calcium Level 8.1 mg/dL (8.5-10.1) Total Bilirubin 0.3 mg/dL (0.2-1.0) Aspartate Amino Transf (AST/SGOT) 13 U/L (15-37) Alanine Aminotransferase (ALT/SGPT) 19 U/L (16-63) Alkaline Phosphatase 52 U/L (46-116) Total Protein 5.2 g/dL (6.4-8.2) Albumin 2.9 g/dL (3.4-5.0) Albumin/Globulin Ratio 1.3 (1.0-1.7) Laboratory Tests Test 11/04/19 05:45 White Blood Count 7.6 x10^3/uL (4.0-11.0) Red Blood Count 2.98 x10^6/uL (4.30-5.70) Hemoglobin 8.6 g/dL (13.0-17.5) Hematocrit 25.2 % (39.0-53.0) Mean Corpuscular Volume 85 fL (79-100) Mean Corpuscular Hemoglobin 29 pg (25-35) Mean Corpuscular Hemoglobin Concent 34 g/dL (31-37) Red Cell Distribution Width 14.4 % (11.5-14.5) Platelet Count 153 x10^3/uL (140-400) Neutrophils (%) (Auto) 61 % (31-73) Lymphocytes (%) (Auto) 33 % (24-48) Monocytes (%) (Auto) 5 % (0-9) Eosinophils (%) (Auto) 1 % (0-3) Basophils (%) (Auto) 0 % (0-3) Neutrophils # (Auto) 4.6 x10^3/uL (1.8-7.7) Lymphocytes # (Auto) 2.5 x10^3/uL (1.0-4.8) Monocytes # (Auto) 0.4 x10^3/uL (0.0-1.1) Eosinophils # (Auto) 0.1 x10^3/uL (0.0-0.7) Basophils # (Auto) 0.0 x10^3/uL (0.0-0.2) Sodium Level 145 mmol/L (136-145) Potassium Level 3.7 mmol/L (3.5-5.1) Chloride Level 112 mmol/L (98-107) Carbon Dioxide Level 26 mmol/L (21-32) Anion Gap 7 (6-14) Blood Urea Nitrogen 24 mg/dL (8-26) Creatinine 1.0 mg/dL (0.7-1.3) Estimated GFR (Cockcroft-Gault) 74.3 BUN/Creatinine Ratio 24 (6-20) Glucose Level 113 mg/dL (70-99) Calcium Level 8.1 mg/dL (8.5-10.1) Total Bilirubin 0.3 mg/dL (0.2-1.0) Aspartate Amino Transf (AST/SGOT) 13 U/L (15-37) Alanine Aminotransferase (ALT/SGPT) 19 U/L (16-63) Alkaline Phosphatase 52 U/L (46-116) Total Protein 5.2 g/dL (6.4-8.2) Albumin 2.9 g/dL (3.4-5.0) Albumin/Globulin Ratio 1.3 (1.0-1.7) Medications Current Medications Pantoprazole Sodium (PROTONIX VIAL for IV PUSH) 40 mg 1X ONCE IVP ; Start 11/02/19 at 22:15; Stop 11/02/19 at 22:16; Status UNV Pantoprazole Sodium 80 mg/ Sodium Chloride 100 ml @ 10 mls/hr Q10H IV Last administered on 11/03/19at 19:49; Start 11/02/19 at 23:00; Stop 11/03/19 at 22:59; Status DC Pantoprazole Sodium (PROTONIX VIAL for IV PUSH) 40 mg 1X ONCE IVP ; Start 11/02/19 at 22:15; Stop 11/02/19 at 22:16; Status UNV Pantoprazole Sodium (PROTONIX VIAL for IV PUSH) 80 mg 1X ONCE IVP Last administered on 11/02/19at 22:54; Start 11/02/19 at 23:00; Stop 11/02/19 at 23:01; Status DC Ondansetron HCl (Zofran) 4 mg PRN Q8HRS PRN IV NAUSEA/VOMITING 1ST CHOICE; Start 11/02/19 at 23:00; Stop 11/03/19 at 22:59; Status DC Sodium Chloride 1,000 ml @ 75 mls/hr [id number] IV Last administered on 11/02/19at 22:48; Start 11/02/19 at 22:48; Stop 11/03/19 at 22:47; Status DC Ondansetron HCl (Zofran) 4 mg 1X ONCE IVP Last administered on 11/02/19at 23:02; Start 11/02/19 at 23:00; Stop 11/02/19 at 23:01; Status DC Ringer's Solution 1,000 ml @ 75 mls/hr 1X ONCE IV Last administered on 11/03/19at 09:15; Start 11/03/19 at 09:15; Stop 11/03/19 at 22:34; Status DC Propofol (Diprivan) 200 mg STK-MED ONCE IV ; Start 11/03/19 at 09:59; Stop 11/02 at 09:59; Status DC Sodium Chloride (Normal Saline Flush) 3 ml QSHIFT PRN IV AFTER MEDS AND BLOOD DRAWS; Start 11/03/19 at 12:00 Sodium Chloride 1,000 ml @ 100 mls/hr Q10H IV Last administered on 11/04/19at 07:34; Start 11/03/19 at 11:55 Ondansetron HCl (Zofran) 4 mg PRN Q4HRS PRN IV NAUSEA/VOMITING; Start 11/03/19 at 12:00 Zolpidem Tartrate (Ambien) 5 mg PRN QHS PRN PO INSOMNIA; Start 11/03/19 at 12:00 Clonidine HCl (Catapres) 0.1 mg PRN Q6HRS PRN PO SBP>160 OR DBP>90; Start 11/03/19 at 12:00 Sodium Monofluorophosphate (Fleet Adult) 133 ml PRN DAILY PRN AR CONSTIPATION; Start 11/03/19 at 12:00 Diphenhydramine HCl (Benadryl) 25 mg PRN Q4HRS PRN IVP ITCHING; Start 11/03/19 at 12:00 Docusate Sodium (Colace) 100 mg PRN BID PRN PO HARD STOOLS; Start 11/03/19 at 12:00 Albuterol Sulfate (Ventolin Neb Soln) 2.5 mg PRN Q4HRS PRN NEB SHORTNESS OF BREATH; Start 11/03/19 at 12:00 Guaifenesin (Robitussin) 200 mg PRN Q4HRS PRN PO COUGH; Start 11/03/19 at 12:00 Lorazepam (Ativan) 0.5 mg PRN Q4HRS PRN PO ANXIETY / AGITATION; Start 11/03/19 at 12:00 Amlodipine Besylate (Norvasc) 10 mg DAILY PO Last administered on 11/04/19at 08:35; Start 11/03/19 at 12:30 Finasteride (Proscar) 5 mg DAILY PO Last administered on 11/04/19at 08:35; Start 11/03/19 at 12:30 Tamsulosin HCl (Flomax) 0.4 mg DAILY PO Last administered on 11/04/19at 08:35; Start 11/03/19 at 12:30 Atorvastatin Calcium (Lipitor) 5 mg QHS PO Last administered on 11/03/19at 19:52; Start 11/03/19 at 21:00 Active Scripts Active Reported Flomax (Tamsulosin Hcl) 0.4 Mg Cap.er.24h 1 Cap PO DAILY Finasteride 5 Mg Tablet 1 Tab PO DAILY Pravastatin Sodium 20 Mg Tablet 1 Tab PO DAILY Amlodipine Besylate 10 Mg Tablet 10 Mg PO DAILY Vitals/I & O Vital Sign - Last 24 Hours 11/03/19 11/03/19 11/03/19 11/03/19 10:20 10:37 10:40 13:34 Temp 98.1 98.0 98.1 98.0 Pulse 88 82 74 74 Resp 18 18 18 B/P (MAP) 108/57 138/74 (95) 133/63 133/63 Pulse Ox 97 98 98 O2 Delivery Room Air Room Air Room Air O2 Flow Rate 4 11/03/19 11/03/19 11/03/19 11/03/19 14:59 16:35 19:00 20:00 Temp 98.0 98.6 98.0 98.6 Pulse 80 80 Resp 18 18 B/P (MAP) 145/78 (100) 118/66 (83) Pulse Ox 99 96 96 O2 Delivery Room Air Room Air Nasal Cannula Room Air 11/03/19 11/04/19 11/04/19 11/04/19 23:00 03:00 07:59 08:00 Temp 97.7 97.9 98.0 97.7 97.9 98.0 Pulse 76 73 71 Resp 20 18 18 B/P (MAP) 129/57 (81) 132/50 (77) 119/55 (76) Pulse Ox 96 95 97 O2 Delivery Room Air Room Air Room Air Room Air 11/04/19 08:35 Pulse 73 B/P (MAP) 132/50 Intake and Output 11/03/19 11/03/19 11/04/19 15:00 23:00 07:00 Intake Total 400 ml 0 ml 220 ml Output Total 400 ml Balance 400 ml 0 ml -180 ml Justicifation of Admission Dx: Justifications for Admission: Justification of Admission Dx: Yes DEYSI LEAL MD Nov 04, 2019 10:09
--- NOTE | 2019-11-04 11:08 | RAD ---
CT abdomen and pelvis without contrast 11/04/2019. Reason for exam: Anemia. Helical noncontrast images were performed. Exposure: One or more of the following individualized dose reduction techniques were utilized for this examination: 1. Automated exposure control 2. Adjustment of the mA and/or kV according to patient size 3. Use of iterative reconstruction technique. FINDINGS: The lung bases are clear. The liver and spleen are homogeneous in density and normal in configuration. Evaluation of the solid organs is limited without IV contrast. The kidneys show no apparent solid mass or obstruction. There is a cyst in the mid left kidney. The adrenal glands are not enlarged. The pancreas appears normal. No retroperitoneal or mesenteric adenopathy is seen. There is no retroperitoneal blood. There is no apparent abdominal soft tissue mass or inflammatory process. A normal appendix is seen arising from the cecum. There is a fat-containing umbilical hernia. Images through the pelvis show no abnormality of the distal ureters or bladder. No pelvic or inguinal adenopathy is seen. There are fat-containing inguinal hernias bilaterally. The prostate appears enlarged. There is no pelvic hematoma or upper thigh hematoma visible. IMPRESSION: No acute normality. No apparent bleeding source or site. Electronically signed by: Luis Yu Jr., MD (11/04/2019 11:06 AM) [id number]
--- NOTE | 2019-11-04 11:17 | RAD ---
Exam performed: One view chest. Indication: Reason: ANEMIA / Spl. Instructions: / History: Date of Service: 11/04/2019 10:13 AM Comparison: None available. Single AP upright portable view chest findings: Cardiomediastinal silhouette is within limits of normal. No acute infiltrates, effusion or pneumothorax is detected. The bony structures are normal. Impression: No acute cardiopulmonary process is detected. Electronically signed by: Neeta Fox MD (11/04/2019 11:14 AM) [id number]
--- NOTE | 2019-11-04 11:57 | PDOC ---
G I PROGRESS NOTE Subjective Denies pain, N, V. No stools since yesterday. Physical Exam Lungs clear. RRR Abdomen soft, not tender nor distended. Review of Relevant I have reviewed the following items selwyn (where applicable) has been applied. Labs Laboratory Tests Test 11/02/19 22:12 11/02/19 22:38 11/03/19 05:05 11/03/19 08:25 White Blood Count 9.0 x10^3/uL (4.0-11.0) 11.0 x10^3/uL (4.0-11.0) Red Blood Count 4.00 x10^6/uL (4.30-5.70) 3.78 x10^6/uL (4.30-5.70) Hemoglobin 11.5 g/dL (13.0-17.5) 10.9 g/dL (13.0-17.5) Hematocrit 33.5 % (39.0-53.0) 31.8 % (39.0-53.0) Mean Corpuscular Volume 84 fL (79-100) 84 fL (79-100) Mean Corpuscular Hemoglobin 29 pg (25-35) 29 pg (25-35) Mean Corpuscular Hemoglobin Concent 34 g/dL (31-37) 34 g/dL (31-37) Red Cell Distribution Width 14.0 % (11.5-14.5) 14.4 % (11.5-14.5) Platelet Count 203 x10^3/uL (140-400) 205 x10^3/uL (140-400) Neutrophils (%) (Auto) 66 % (31-73) 69 % (31-73) Lymphocytes (%) (Auto) 28 % (24-48) 26 % (24-48) Monocytes (%) (Auto) 6 % (0-9) 5 % (0-9) Eosinophils (%) (Auto) 0 % (0-3) 0 % (0-3) Basophils (%) (Auto) 1 % (0-3) 0 % (0-3) Neutrophils # (Auto) 6.0 x10^3/uL (1.8-7.7) 7.6 x10^3/uL (1.8-7.7) Lymphocytes # (Auto) 2.5 x10^3/uL (1.0-4.8) 2.8 x10^3/uL (1.0-4.8) Monocytes # (Auto) 0.5 x10^3/uL (0.0-1.1) 0.6 x10^3/uL (0.0-1.1) Eosinophils # (Auto) 0.0 x10^3/uL (0.0-0.7) 0.0 x10^3/uL (0.0-0.7) Basophils # (Auto) 0.1 x10^3/uL (0.0-0.2) 0.0 x10^3/uL (0.0-0.2) Prothrombin Time 14.3 SEC (11.7-14.0) Prothromb Time International Ratio 1.2 (0.8-1.1) Activated Partial Thromboplast Time 21 SEC (24-38) Sodium Level 144 mmol/L (136-145) 145 mmol/L (136-145) Potassium Level 4.3 mmol/L (3.5-5.1) 4.4 mmol/L (3.5-5.1) Chloride Level 109 mmol/L (98-107) 112 mmol/L (98-107) Carbon Dioxide Level 25 mmol/L (21-32) 25 mmol/L (21-32) Anion Gap 10 (6-14) 8 (6-14) Blood Urea Nitrogen 46 mg/dL (8-26) 43 mg/dL (8-26) Creatinine 0.9 mg/dL (0.7-1.3) 0.9 mg/dL (0.7-1.3) Estimated GFR (Cockcroft-Gault) 83.9 83.9 BUN/Creatinine Ratio 51 (6-20) 48 (6-20) Glucose Level 154 mg/dL (70-99) 122 mg/dL (70-99) Calcium Level 8.4 mg/dL (8.5-10.1) 8.4 mg/dL (8.5-10.1) Total Bilirubin 0.4 mg/dL (0.2-1.0) 0.3 mg/dL (0.2-1.0) Aspartate Amino Transf (AST/SGOT) 18 U/L (15-37) 15 U/L (15-37) Alanine Aminotransferase (ALT/SGPT) 28 U/L (16-63) 22 U/L (16-63) Alkaline Phosphatase 74 U/L (46-116) 63 U/L (46-116) Troponin I Quantitative < 0.017 ng/mL (0.000-0.055) Total Protein 6.2 g/dL (6.4-8.2) 5.9 g/dL (6.4-8.2) Albumin 3.4 g/dL (3.4-5.0) 3.2 g/dL (3.4-5.0) Albumin/Globulin Ratio 1.2 (1.0-1.7) 1.2 (1.0-1.7) Stool Occult Blood Positive (NEG) SARS-CoV-2 Antigen (Rapid) Negative (NEGATIVE) Test 11/04/19 05:45 11/04/19 11:15 White Blood Count 7.6 x10^3/uL (4.0-11.0) Red Blood Count 2.98 x10^6/uL (4.30-5.70) Hemoglobin 8.6 g/dL (13.0-17.5) 9.2 g/dL (13.0-17.5) Hematocrit 25.2 % (39.0-53.0) Mean Corpuscular Volume 85 fL (79-100) Mean Corpuscular Hemoglobin 29 pg (25-35) Mean Corpuscular Hemoglobin Concent 34 g/dL (31-37) Red Cell Distribution Width 14.4 % (11.5-14.5) Platelet Count 153 x10^3/uL (140-400) Neutrophils (%) (Auto) 61 % (31-73) Lymphocytes (%) (Auto) 33 % (24-48) Monocytes (%) (Auto) 5 % (0-9) Eosinophils (%) (Auto) 1 % (0-3) Basophils (%) (Auto) 0 % (0-3) Neutrophils # (Auto) 4.6 x10^3/uL (1.8-7.7) Lymphocytes # (Auto) 2.5 x10^3/uL (1.0-4.8) Monocytes # (Auto) 0.4 x10^3/uL (0.0-1.1) Eosinophils # (Auto) 0.1 x10^3/uL (0.0-0.7) Basophils # (Auto) 0.0 x10^3/uL (0.0-0.2) Sodium Level 145 mmol/L (136-145) Potassium Level 3.7 mmol/L (3.5-5.1) Chloride Level 112 mmol/L (98-107) Carbon Dioxide Level 26 mmol/L (21-32) Anion Gap 7 (6-14) Blood Urea Nitrogen 24 mg/dL (8-26) Creatinine 1.0 mg/dL (0.7-1.3) Estimated GFR (Cockcroft-Gault) 74.3 BUN/Creatinine Ratio 24 (6-20) Glucose Level 113 mg/dL (70-99) Calcium Level 8.1 mg/dL (8.5-10.1) Total Bilirubin 0.3 mg/dL (0.2-1.0) Aspartate Amino Transf (AST/SGOT) 13 U/L (15-37) Alanine Aminotransferase (ALT/SGPT) 19 U/L (16-63) Alkaline Phosphatase 52 U/L (46-116) Total Protein 5.2 g/dL (6.4-8.2) Albumin 2.9 g/dL (3.4-5.0) Albumin/Globulin Ratio 1.3 (1.0-1.7) Laboratory Tests Test 11/04/19 05:45 11/04/19 11:15 White Blood Count 7.6 x10^3/uL (4.0-11.0) Red Blood Count 2.98 x10^6/uL (4.30-5.70) Hemoglobin 8.6 g/dL (13.0-17.5) 9.2 g/dL (13.0-17.5) Hematocrit 25.2 % (39.0-53.0) Mean Corpuscular Volume 85 fL (79-100) Mean Corpuscular Hemoglobin 29 pg (25-35) Mean Corpuscular Hemoglobin Concent 34 g/dL (31-37) Red Cell Distribution Width 14.4 % (11.5-14.5) Platelet Count 153 x10^3/uL (140-400) Neutrophils (%) (Auto) 61 % (31-73) Lymphocytes (%) (Auto) 33 % (24-48) Monocytes (%) (Auto) 5 % (0-9) Eosinophils (%) (Auto) 1 % (0-3) Basophils (%) (Auto) 0 % (0-3) Neutrophils # (Auto) 4.6 x10^3/uL (1.8-7.7) Lymphocytes # (Auto) 2.5 x10^3/uL (1.0-4.8) Monocytes # (Auto) 0.4 x10^3/uL (0.0-1.1) Eosinophils # (Auto) 0.1 x10^3/uL (0.0-0.7) Basophils # (Auto) 0.0 x10^3/uL (0.0-0.2) Sodium Level 145 mmol/L (136-145) Potassium Level 3.7 mmol/L (3.5-5.1) Chloride Level 112 mmol/L (98-107) Carbon Dioxide Level 26 mmol/L (21-32) Anion Gap 7 (6-14) Blood Urea Nitrogen 24 mg/dL (8-26) Creatinine 1.0 mg/dL (0.7-1.3) Estimated GFR (Cockcroft-Gault) 74.3 BUN/Creatinine Ratio 24 (6-20) Glucose Level 113 mg/dL (70-99) Calcium Level 8.1 mg/dL (8.5-10.1) Total Bilirubin 0.3 mg/dL (0.2-1.0) Aspartate Amino Transf (AST/SGOT) 13 U/L (15-37) Alanine Aminotransferase (ALT/SGPT) 19 U/L (16-63) Alkaline Phosphatase 52 U/L (46-116) Total Protein 5.2 g/dL (6.4-8.2) Albumin 2.9 g/dL (3.4-5.0) Albumin/Globulin Ratio 1.3 (1.0-1.7) Hemoglobin stabilizing. Vitals/I & O Vital Sign - Last 24 Hours 11/03/19 11/03/19 11/03/19 11/03/19 13:34 14:59 16:35 19:00 Temp 98.0 98.6 98.0 98.6 Pulse 74 80 80 Resp 18 18 B/P (MAP) 133/63 145/78 (100) 118/66 (83) Pulse Ox 99 96 96 O2 Delivery Room Air Room Air Nasal Cannula 11/03/19 11/03/19 11/04/19 11/04/19 20:00 23:00 03:00 07:59 Temp 97.7 97.9 98.0 97.7 97.9 98.0 Pulse 76 73 71 Resp 20 18 18 B/P (MAP) 129/57 (81) 132/50 (77) 119/55 (76) Pulse Ox 96 95 97 O2 Delivery Room Air Room Air Room Air Room Air 11/04/19 11/04/19 08:00 08:35 Pulse 73 B/P (MAP) 132/50 O2 Delivery Room Air Intake and Output 11/03/19 11/03/19 11/04/19 15:00 23:00 07:00 Intake Total 400 ml 0 ml 220 ml Output Total 400 ml Balance 400 ml 0 ml -180 ml Problem List Problems Medical Problems: (1) GI bleed Status: Acute Assessment Gastric and duodenal ulcers with bleeding; bleeding seems to have ceased clinically. Plan of Care Note Clears. PO PPI. Follow hemoglobin. Justicifation of Admission Dx: Justifications for Admission: Justification of Admission Dx: Yes LESLYE MERCADO MD Nov 04, 2019 11:57
[2019-11-04 15:59] VITALS: BP 110/59
[2019-11-04] MEDS: PANTOPRAZOLE 40 MG TABLET.DR. PO SCH (17:27)
[2019-11-04 19:00] VITALS: BP 120/64
[2019-11-04] MEDS: ATORVASTATIN CALCIUM 10 MG TABLET. PO SCH (22:06)
[2019-11-04] MEDS ORDERED: allergy pill (22:16)
[2019-11-04] MEDS ORDERED: tagamet (22:16)
[2019-11-04] MEDS ORDERED: MULTIVITAMIN (22:16)
[2019-11-04] MEDS ORDERED: ASPI81TA59 PO (22:16)
[2019-11-04] MEDS ORDERED: [UNRECOGNIZED DRUG - OTHER] (22:16)
[2019-11-04 23:03] VITALS: BP 133/62
[2019-11-05] MEDS: IV NORMAL SALINE 1000ML BAG 1,000 ML IV SCH (03:33)
[2019-11-05 03:36] VITALS: BP 125/56
[2019-11-05 06:43] LABS: HEMATOCRIT 23.9 % (39.0-53.0); HEMOGLOBIN 8.3 g/dL (13.0-17.5); RED BLOOD COUNT 2.83 x10^6/uL (4.30-5.70); RED CELL DISTRIBUTION WIDTH 14.1 % (11.5-14.5); WHITE BLOOD COUNT 6.8 x10^3/uL (4.0-11.0)
[2019-11-05 07:00] VITALS: BP 123/60
[2019-11-05 07:12] LABS: CALCIUM 7.9 mg/dL (8.5-10.1); CREATININE 0.8 mg/dL (0.7-1.3); GFR 96.1; POTASSIUM 3.4 mmol/L (3.5-5.1)
[2019-11-05] MEDS: amLODIPine BESYLATE 10 MG TABLET PO SCH (09:53)
[2019-11-05] MEDS: FINASTERIDE 5 MG TABLET. PO SCH (09:53)
[2019-11-05] MEDS: PANTOPRAZOLE 40 MG TABLET.DR. PO SCH ×2 (09:54→17:47)
[2019-11-05] MEDS: TAMSULOSIN 0.4 MG CAP.ER.24H. PO SCH (09:54)
[2019-11-05 11:00] VITALS: BP 125/62
--- NOTE | 2019-11-05 11:19 | PDOC ---
PROGRESS NOTES Date of Service: DATE: 11/05/19 TIME: 11:19 Chief Complaint Chief Complaint Operative Note Operative Note Operative Note EGD with biopsy/APC laser Meds Propofol per anesthesia Pre-op dx melena /acute blood loss anemia post-op dx gastric ulcer s/p bx/ERBE APC laser duodenal polyp s/p bx Plan PPI therapy for two months advance diet in am if Hg stable Serial Hgs AGNIESZKA ACUNA MD VTE Prophylaxis Ordered VTE Prophylaxis Devices: Yes VTE Pharmacological Prophylaxi: Contraindicated Assessment/Plan Assessment/Plan Impression: GI bleed, acute gastric ulcer s/p bx/ERBE APC laser duodenal polyp s/p bx PPI therapy for two months MORBID OBESITY TOBACCO ABUSE DISORDER ACUTE BLOOD LOSS ANEMIA 2 gm drop in hgb overnight 11/03 CHECK HGB NOW ADMITTED EGD IV PROTONIX gi consult ADAT AM CBC 11/04 STILL ON CLEARS, some darks stools, less discomfort, advance diet if ok with GI HGB STABLE 27 MIN PT EXAM, CHART REVIEW, > 50% OF TIME SPENT WITH EXAM, CHART REVIEW, PT CARE COORDINATION History of Present Illness History of Present Illness Identification/Chief Complaint Chief Complaint seen in er with heme pos stools, 68 year old male with a past medical history hypertension hyperlipidemia ulcers seen for evaluation of dark black stools. // dark stools approximately 3 to 4 hours [employer] Patient states had associated dizziness. Symptoms similar to past ulcers -, DISCOMFORT Past Medical History Cardiovascular: HTN GI: GERD, Peptic Ulcer disease Family History Family History: Hypertension Social History Smoke: <1 pack per day ALCOHOL: occassional Drugs: None Current Problem List Problem List Problems Medical Problems: (1) GI bleed Status: Acute Vitals Vitals Vital Signs Date Time Temp Pulse Resp B/P (MAP) Pulse Ox O2 Delivery O2 Flow Rate FiO2 11/05/19 09:53 74 125/56 11/05/19 07:00 97.8 16 98 Room Air 97.8 Physical Exam General: Alert, Oriented X3, Cooperative, No acute distress Heart: Regular rate, Normal S1, Normal S2, No murmurs Lungs: Clear Abdomen: Normal bowel sounds, Soft, No tenderness, No masses Extremities: No clubbing, No cyanosis, No edema Skin: No significant lesion Labs LABS Laboratory Tests Test 11/05/19 05:55 White Blood Count 6.8 x10^3/uL (4.0-11.0) Red Blood Count 2.83 x10^6/uL (4.30-5.70) Hemoglobin 8.3 g/dL (13.0-17.5) Hematocrit 23.9 % (39.0-53.0) Mean Corpuscular Volume 84 fL (79-100) Mean Corpuscular Hemoglobin 29 pg (25-35) Mean Corpuscular Hemoglobin Concent 35 g/dL (31-37) Red Cell Distribution Width 14.1 % (11.5-14.5) Platelet Count 149 x10^3/uL (140-400) Sodium Level 141 mmol/L (136-145) Potassium Level 3.4 mmol/L (3.5-5.1) Chloride Level 109 mmol/L (98-107) Carbon Dioxide Level 26 mmol/L (21-32) Anion Gap 6 (6-14) Blood Urea Nitrogen 13 mg/dL (8-26) Creatinine 0.8 mg/dL (0.7-1.3) Estimated GFR (Cockcroft-Gault) 96.1 Glucose Level 104 mg/dL (70-99) Calcium Level 7.9 mg/dL (8.5-10.1) Assessment and Plan Assessmemt and Plan Problems Medical Problems: (1) GI bleed Status: Acute Comment Review of Relevant I have reviewed the following items selwyn (where applicable) has been applied. Labs Laboratory Tests Test 11/04/19 05:45 11/04/19 11:15 11/05/19 05:55 White Blood Count 7.6 x10^3/uL (4.0-11.0) 6.8 x10^3/uL (4.0-11.0) Red Blood Count 2.98 x10^6/uL (4.30-5.70) 2.83 x10^6/uL (4.30-5.70) Hemoglobin 8.6 g/dL (13.0-17.5) 9.2 g/dL (13.0-17.5) 8.3 g/dL (13.0-17.5) Hematocrit 25.2 % (39.0-53.0) 23.9 % (39.0-53.0) Mean Corpuscular Volume 85 fL (79-100) 84 fL (79-100) Mean Corpuscular Hemoglobin 29 pg (25-35) 29 pg (25-35) Mean Corpuscular Hemoglobin Concent 34 g/dL (31-37) 35 g/dL (31-37) Red Cell Distribution Width 14.4 % (11.5-14.5) 14.1 % (11.5-14.5) Platelet Count 153 x10^3/uL (140-400) 149 x10^3/uL (140-400) Neutrophils (%) (Auto) 61 % (31-73) Lymphocytes (%) (Auto) 33 % (24-48) Monocytes (%) (Auto) 5 % (0-9) Eosinophils (%) (Auto) 1 % (0-3) Basophils (%) (Auto) 0 % (0-3) Neutrophils # (Auto) 4.6 x10^3/uL (1.8-7.7) Lymphocytes # (Auto) 2.5 x10^3/uL (1.0-4.8) Monocytes # (Auto) 0.4 x10^3/uL (0.0-1.1) Eosinophils # (Auto) 0.1 x10^3/uL (0.0-0.7) Basophils # (Auto) 0.0 x10^3/uL (0.0-0.2) Sodium Level 145 mmol/L (136-145) 141 mmol/L (136-145) Potassium Level 3.7 mmol/L (3.5-5.1) 3.4 mmol/L (3.5-5.1) Chloride Level 112 mmol/L (98-107) 109 mmol/L (98-107) Carbon Dioxide Level 26 mmol/L (21-32) 26 mmol/L (21-32) Anion Gap 7 (6-14) 6 (6-14) Blood Urea Nitrogen 24 mg/dL (8-26) 13 mg/dL (8-26) Creatinine 1.0 mg/dL (0.7-1.3) 0.8 mg/dL (0.7-1.3) Estimated GFR (Cockcroft-Gault) 74.3 96.1 BUN/Creatinine Ratio 24 (6-20) Glucose Level 113 mg/dL (70-99) 104 mg/dL (70-99) Calcium Level 8.1 mg/dL (8.5-10.1) 7.9 mg/dL (8.5-10.1) Total Bilirubin 0.3 mg/dL (0.2-1.0) Aspartate Amino Transf (AST/SGOT) 13 U/L (15-37) Alanine Aminotransferase (ALT/SGPT) 19 U/L (16-63) Alkaline Phosphatase 52 U/L (46-116) Total Protein 5.2 g/dL (6.4-8.2) Albumin 2.9 g/dL (3.4-5.0) Albumin/Globulin Ratio 1.3 (1.0-1.7) Laboratory Tests Test 11/05/19 05:55 White Blood Count 6.8 x10^3/uL (4.0-11.0) Red Blood Count 2.83 x10^6/uL (4.30-5.70) Hemoglobin 8.3 g/dL (13.0-17.5) Hematocrit 23.9 % (39.0-53.0) Mean Corpuscular Volume 84 fL (79-100) Mean Corpuscular Hemoglobin 29 pg (25-35) Mean Corpuscular Hemoglobin Concent 35 g/dL (31-37) Red Cell Distribution Width 14.1 % (11.5-14.5) Platelet Count 149 x10^3/uL (140-400) Sodium Level 141 mmol/L (136-145) Potassium Level 3.4 mmol/L (3.5-5.1) Chloride Level 109 mmol/L (98-107) Carbon Dioxide Level 26 mmol/L (21-32) Anion Gap 6 (6-14) Blood Urea Nitrogen 13 mg/dL (8-26) Creatinine 0.8 mg/dL (0.7-1.3) Estimated GFR (Cockcroft-Gault) 96.1 Glucose Level 104 mg/dL (70-99) Calcium Level 7.9 mg/dL (8.5-10.1) Medications Current Medications Pantoprazole Sodium (PROTONIX VIAL for IV PUSH) 40 mg 1X ONCE IVP ; Start 11/02/19 at 22:15; Stop 11/02/19 at 22:16; Status UNV Pantoprazole Sodium 80 mg/ Sodium Chloride 100 ml @ 10 mls/hr Q10H IV Last administered on 11/03/19at 19:49; Start 11/02/19 at 23:00; Stop 11/03/19 at 22:59; Status DC Pantoprazole Sodium (PROTONIX VIAL for IV PUSH) 40 mg 1X ONCE IVP ; Start 10/10 05/28 at 22:15; Stop 11/02/19 at 22:16; Status UNV Pantoprazole Sodium (PROTONIX VIAL for IV PUSH) 80 mg 1X ONCE IVP Last admi nistered on 11/02/19at 22:54; Start 11/02/19 at 23:00; Stop 11/02/19 at 23:01; Status DC Ondansetron HCl (Zofran) 4 mg PRN Q8HRS PRN IV NAUSEA/VOMITING 1ST CHOICE; Start 11/02/19 at 23:00; Stop 11/03/19 at 22:59; Status DC Sodium Chloride 1,000 ml @ 75 mls/hr [id number] IV Last administered on 11/02/19at 22:48; Start 11/02/19 at 22:48; Stop 11/03/19 at 22:47; Status DC Ondansetron HCl (Zofran) 4 mg 1X ONCE IVP Last administered on 11/02/19at 23:02; Start 11/02/19 at 23:00; Stop 11/02/19 at 23:01; Status DC Ringer's Solution 1,000 ml @ 75 mls/hr 1X ONCE IV Last administered on 11/03/19at 09:15; Start 11/03/19 at 09:15; Stop 11/03/19 at 22:34; Status DC Propofol (Diprivan) 200 mg STK-MED ONCE IV ; Start 11/03/19 at 09:59; Stop 11/03/19 at 09:59; Status DC Sodium Chloride (Normal Saline Flush) 3 ml QSHIFT PRN IV AFTER MEDS AND BLOOD DRAWS; Start 11/03/19 at 12:00 Sodium Chloride 1,000 ml @ 100 mls/hr Q10H IV Last administered on 11/05/19at 03:33; Start 11/03/19 at 11:55 Ondansetron HCl (Zofran) 4 mg PRN Q4HRS PRN IV NAUSEA/VOMITING; Start 11/03/19 at 12:00 Zolpidem Tartrate (Ambien) 5 mg PRN QHS PRN PO INSOMNIA; Start 11/03/19 at 12:00 Clonidine HCl (Catapres) 0.1 mg PRN Q6HRS PRN PO SBP>160 OR DBP>90; Start 11/03/19 at 12:00 Sodium Monofluorophosphate (Fleet Adult) 133 ml PRN DAILY PRN WI CONSTIPATION; Start 11/03/19 at 12:00 Diphenhydramine HCl (Benadryl) 25 mg PRN Q4HRS PRN IVP ITCHING; Start 11/03/19 at 12:00 Docusate Sodium (Colace) 100 mg PRN BID PRN PO HARD STOOLS; Start 11/03/19 at 12:00 Albuterol Sulfate (Ventolin Neb Soln) 2.5 mg PRN Q4HRS PRN NEB SHORTNESS OF BREATH; Start 11/03/19 at 12:00 Guaifenesin (Robitussin) 200 mg PRN Q4HRS PRN PO COUGH; Start 11/03/19 at 12:00 Lorazepam (Ativan) 0.5 mg PRN Q4HRS PRN PO ANXIETY / AGITATION; Start 11/03/19 at 12:00 Amlodipine Besylate (Norvasc) 10 mg DAILY PO Last administered on 11/05/19at 09:53; Start 11/03/19 at 12:30 Finasteride (Proscar) 5 mg DAILY PO Last administered on 11/05/19at 09:53; Start 11/03/19 at 12:30 Tamsulosin HCl (Flomax) 0.4 mg DAILY PO Last administered on 11/05/19at 09:54; Start 11/03/19 at 12:30 Atorvastatin Calcium (Lipitor) 5 mg QHS PO Last administered on 11/04/19at 22:06; Start 11/03/19 at 21:00 Pantoprazole Sodium (Protonix) 40 mg BIDAC PO Last administered on 11/05/19at 09:54; Start 11/04/19 at 16:30 Active Scripts Active Reported [tagamet ] DAILY [multivitamin 50 y/o] DAILY Children's Aspirin (Aspirin) 81 Mg Tab.chew 1 Tab PO DAILY 30 Days Flomax (Tamsulosin Hcl) 0.4 Mg Cap.er.24h 1 Cap PO DAILY Finasteride 5 Mg Tablet 1 Tab PO DAILY Pravastatin Sodium 20 Mg Tablet 1 Tab PO DAILY Amlodipine Besylate 10 Mg Tablet 10 Mg PO DAILY [allergy pill] HS Vitals/I & O Vital Sign - Last 24 Hours 11/04/19 11/04/19 11/04/19 11/04/19 15:59 19:00 20:20 23:03 Temp 98.5 98.3 97.8 98.5 98.3 97.8 Pulse 74 79 66 Resp 18 20 20 B/P (MAP) 110/59 (76) 120/64 (82) 133/62 (85) Pulse Ox 95 98 97 O2 Delivery Room Air Room Air Room Air Room Air 11/05/19 11/05/19 11/05/19 03:36 07:00 09:53 Temp 98.4 97.8 98.4 97.8 Pulse 74 71 74 Resp 20 16 B/P (MAP) 125/56 (79) 123/60 (81) 125/56 Pulse Ox 98 98 O2 Delivery Room Air Room Air Intake and Output 11/04/19 11/04/19 11/05/19 15:00 23:00 07:00 Intake Total 1120 ml 1000 ml Balance 1120 ml 1000 ml Justicifation of Admission Dx: Justifications for Admission: Justification of Admission Dx: Yes DEYSI LEAL MD Nov 05, 2019 11:19
--- NOTE | 2019-11-05 13:22 | PDOC ---
G I PROGRESS NOTE Subjective Had some heartburn earlier, otherwise w/o complaints. Stools still melanotic. Physical Exam Lungs clear. RRR Abdomen soft, not tender nor distended. Review of Relevant I have reviewed the following items selwyn (where applicable) has been applied. Labs Laboratory Tests Test 11/04/19 05:45 11/04/19 11:15 11/05/19 05:55 White Blood Count 7.6 x10^3/uL (4.0-11.0) 6.8 x10^3/uL (4.0-11.0) Red Blood Count 2.98 x10^6/uL (4.30-5.70) 2.83 x10^6/uL (4.30-5.70) Hemoglobin 8.6 g/dL (13.0-17.5) 9.2 g/dL (13.0-17.5) 8.3 g/dL (13.0-17.5) Hematocrit 25.2 % (39.0-53.0) 23.9 % (39.0-53.0) Mean Corpuscular Volume 85 fL (79-100) 84 fL (79-100) Mean Corpuscular Hemoglobin 29 pg (25-35) 29 pg (25-35) Mean Corpuscular Hemoglobin Concent 34 g/dL (31-37) 35 g/dL (31-37) Red Cell Distribution Width 14.4 % (11.5-14.5) 14.1 % (11.5-14.5) Platelet Count 153 x10^3/uL (140-400) 149 x10^3/uL (140-400) Neutrophils (%) (Auto) 61 % (31-73) Lymphocytes (%) (Auto) 33 % (24-48) Monocytes (%) (Auto) 5 % (0-9) Eosinophils (%) (Auto) 1 % (0-3) Basophils (%) (Auto) 0 % (0-3) Neutrophils # (Auto) 4.6 x10^3/uL (1.8-7.7) Lymphocytes # (Auto) 2.5 x10^3/uL (1.0-4.8) Monocytes # (Auto) 0.4 x10^3/uL (0.0-1.1) Eosinophils # (Auto) 0.1 x10^3/uL (0.0-0.7) Basophils # (Auto) 0.0 x10^3/uL (0.0-0.2) Sodium Level 145 mmol/L (136-145) 141 mmol/L (136-145) Potassium Level 3.7 mmol/L (3.5-5.1) 3.4 mmol/L (3.5-5.1) Chloride Level 112 mmol/L (98-107) 109 mmol/L (98-107) Carbon Dioxide Level 26 mmol/L (21-32) 26 mmol/L (21-32) Anion Gap 7 (6-14) 6 (6-14) Blood Urea Nitrogen 24 mg/dL (8-26) 13 mg/dL (8-26) Creatinine 1.0 mg/dL (0.7-1.3) 0.8 mg/dL (0.7-1.3) Estimated GFR (Cockcroft-Gault) 74.3 96.1 BUN/Creatinine Ratio 24 (6-20) Glucose Level 113 mg/dL (70-99) 104 mg/dL (70-99) Calcium Level 8.1 mg/dL (8.5-10.1) 7.9 mg/dL (8.5-10.1) Total Bilirubin 0.3 mg/dL (0.2-1.0) Aspartate Amino Transf (AST/SGOT) 13 U/L (15-37) Alanine Aminotransferase (ALT/SGPT) 19 U/L (16-63) Alkaline Phosphatase 52 U/L (46-116) Total Protein 5.2 g/dL (6.4-8.2) Albumin 2.9 g/dL (3.4-5.0) Albumin/Globulin Ratio 1.3 (1.0-1.7) Laboratory Tests Test 11/05/19 05:55 White Blood Count 6.8 x10^3/uL (4.0-11.0) Red Blood Count 2.83 x10^6/uL (4.30-5.70) Hemoglobin 8.3 g/dL (13.0-17.5) Hematocrit 23.9 % (39.0-53.0) Mean Corpuscular Volume 84 fL (79-100) Mean Corpuscular Hemoglobin 29 pg (25-35) Mean Corpuscular Hemoglobin Concent 35 g/dL (31-37) Red Cell Distribution Width 14.1 % (11.5-14.5) Platelet Count 149 x10^3/uL (140-400) Sodium Level 141 mmol/L (136-145) Potassium Level 3.4 mmol/L (3.5-5.1) Chloride Level 109 mmol/L (98-107) Carbon Dioxide Level 26 mmol/L (21-32) Anion Gap 6 (6-14) Blood Urea Nitrogen 13 mg/dL (8-26) Creatinine 0.8 mg/dL (0.7-1.3) Estimated GFR (Cockcroft-Gault) 96.1 Glucose Level 104 mg/dL (70-99) Calcium Level 7.9 mg/dL (8.5-10.1) Hemoglobin stable. Vitals/I & O Vital Sign - Last 24 Hours 11/04/19 11/04/19 11/04/19 11/04/19 15:59 19:00 20:20 23:03 Temp 98.5 98.3 97.8 98.5 98.3 97.8 Pulse 74 79 66 Resp 18 20 20 B/P (MAP) 110/59 (76) 120/64 (82) 133/62 (85) Pulse Ox 95 98 97 O2 Delivery Room Air Room Air Room Air Room Air 11/05/19 11/05/19 11/05/19 11/05/19 03:36 07:00 08:00 09:53 Temp 98.4 97.8 98.4 97.8 Pulse 74 71 74 Resp 20 16 B/P (MAP) 125/56 (79) 123/60 (81) 125/56 Pulse Ox 98 98 O2 Delivery Room Air Room Air Room Air O2 Flow Rate 4.0 Intake and Output 11/04/19 11/04/19 11/05/19 15:00 23:00 07:00 Intake Total 1120 ml 1000 ml Balance 1120 ml 1000 ml Problem List Problems Medical Problems: (1) GI bleed Status: Acute Assessment Gastric ulcer with bleeding. This is fourth bleed. Apparently had H.pylori once; regimen treated with not known nor any f/u to confirm eradication. Biopies from this time pending. Would be some concern re: gastrinoma, though typically would not find H.pylori in conjunction. Plan of Care Note Continue PPI; would consider chronic treatment unless can determine H.pylori positive still and treat. Will check gastrin level. OK to [facility]. Justicifation of Admission Dx: Justifications for Admission: Justification of Admission Dx: Yes LESLYE MERCADO MD Nov 05, 2019 13:22
[2019-11-05 15:00] VITALS: BP 115/56
[2019-11-05 19:25] VITALS: BP 132/62
[2019-11-05] MEDS: ATORVASTATIN CALCIUM 10 MG TABLET. PO SCH (20:24)
[2019-11-05 23:15] VITALS: BP 124/76
[2019-11-06 02:55] VITALS: BP 111/51
[2019-11-06 06:04] LABS: CALCIUM 8.2 mg/dL (8.5-10.1); CREATININE 0.9 mg/dL (0.7-1.3); GFR 83.9; POTASSIUM 3.4 mmol/L (3.5-5.1)
[2019-11-06 06:19] LABS: BASO % 0 % (0-3); EOS # 0.1 x10^3/uL (0.0-0.7); EOS % 2 % (0-3); HEMATOCRIT 24.5 % (39.0-53.0); HEMOGLOBIN 8.6 g/dL (13.0-17.5); LYMPH % 31 % (24-48); MEAN CORPUSCULAR HEMOGLOBIN 30 pg (25-35); MEAN CORPUSCULAR HGB CONC 35 g/dL (31-37); MEAN CORPUSCULAR VOLUME 85 fL (79-100); MONO # 0.3 x10^3/uL (0.0-1.1); MONO % 5 % (0-9); NEUT % 62 % (31-73); PLATELET COUNT 163 x10^3/uL (140-400); RED CELL DISTRIBUTION WIDTH 14.2 % (11.5-14.5); WHITE BLOOD COUNT 6.5 x10^3/uL (4.0-11.0)
[2019-11-06 07:00] VITALS: BP 119/58
[2019-11-06] MEDS: PANTOPRAZOLE 40 MG TABLET.DR. PO SCH (07:40)
--- NOTE | 2019-11-06 07:41 | PDOC ---
[facility] PROGRESS NOTE Date of Service DOS: DATE: 11/06/19 TIME: 07:38 Chief Complaint Chief Complaint A/P: GI bleed, acute gastric ulcer s/p bx/ERBE APC laser duodenal polyp s/p bx PPI therapy for two months OBESITY TOBACCO ABUSE DISORDER ACUTE BLOOD LOSS ANEMIA 2 gm drop in hgb overnight ROBERT on CPAP - brought home device History of Present Illness History of Present Illness Mr Scott is a 68yo M w/ PMHx HTN, HLD, smoker, PUD who p/w dark stools approximately 3 to 4 hours [employer]. Patient states had associated dizziness. 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 Hb 11.5 on admit, dropped to 8.6. EGD on 11/03/2019: gastric ulcer s/p bx/ERBE APC laser and duodenal polyp s/p bx. GI recommends PPI therapy for two months. 11/04 STILL ON CLEARS, some darks stools, less discomfort, advance diet if ok with GI HGB STABLE Hb 8.6 today K3.4. He is feeling much better is been able to walk without shortness of breath or dizziness. Advised on twice daily Protonix for 2 months and will call with follow-up biopsy results to rule out H. pylori as this is his fourth peptic ulcer in his lifetime. He does note with his first ulcer he was told it was due to bacteria 20 years ago. Vitals/I&O Vitals/I&O: Vital Signs Date Time Temp Pulse Resp B/P (MAP) Pulse Ox O2 Delivery O2 Flow Rate FiO2 11/06/19 07:00 98.2 67 17 119/58 (78) 95 Room Air 98.2 11/05/19 08:00 4.0 I & O 11/05/19 11/05/19 11/06/19 15:00 23:00 07:00 Intake Total 60 ml 300 ml Balance 60 ml 300 ml Physical Exam General: Alert, Oriented X3, Cooperative, No acute distress Heart: Regular rate, Normal S1, Normal S2, No murmurs Lungs: Clear Abdomen: Normal bowel sounds, Soft, No tenderness, No masses Extremities: No clubbing, No cyanosis, No edema Skin: No significant lesion Labs Labs: Laboratory Tests Test 11/06/19 05:15 White Blood Count 6.5 x10^3/uL (4.0-11.0) Red Blood Count 2.90 x10^6/uL (4.30-5.70) Hemoglobin 8.6 g/dL (13.0-17.5) Hematocrit 24.5 % (39.0-53.0) Mean Corpuscular Volume 85 fL (79-100) Mean Corpuscular Hemoglobin 30 pg (25-35) Mean Corpuscular Hemoglobin Concent 35 g/dL (31-37) Red Cell Distribution Width 14.2 % (11.5-14.5) Platelet Count 163 x10^3/uL (140-400) Neutrophils (%) (Auto) 62 % (31-73) Lymphocytes (%) (Auto) 31 % (24-48) Monocytes (%) (Auto) 5 % (0-9) Eosinophils (%) (Auto) 2 % (0-3) Basophils (%) (Auto) 0 % (0-3) Neutrophils # (Auto) 4.0 x10^3/uL (1.8-7.7) Lymphocytes # (Auto) 2.0 x10^3/uL (1.0-4.8) Monocytes # (Auto) 0.3 x10^3/uL (0.0-1.1) Eosinophils # (Auto) 0.1 x10^3/uL (0.0-0.7) Basophils # (Auto) 0.0 x10^3/uL (0.0-0.2) Sodium Level 143 mmol/L (136-145) Potassium Level 3.4 mmol/L (3.5-5.1) Chloride Level 106 mmol/L (98-107) Carbon Dioxide Level 28 mmol/L (21-32) Anion Gap 9 (6-14) Blood Urea Nitrogen 8 mg/dL (8-26) Creatinine 0.9 mg/dL (0.7-1.3) Estimated GFR (Cockcroft-Gault) 83.9 Glucose Level 99 mg/dL (70-99) Calcium Level 8.2 mg/dL (8.5-10.1) Assessment and Plan Assessmemt and Plan Problems Medical Problems: (1) GI bleed Status: Acute Comment Review of Relevant I have reviewed the following items selwyn (where applicable) has been applied. Justifications for Admission Other Justification SYLVESTER WEST MD Nov 06, 2019 07:41
[2019-11-06] MEDS ORDERED: POTASSIUM CHLORIDE 20 MEQ TABLET.ER. PO ONE (08:00)
[2019-11-06] MEDS: amLODIPine BESYLATE 10 MG TABLET PO SCH (08:45)
[2019-11-06] MEDS: FINASTERIDE 5 MG TABLET. PO SCH (08:48)
[2019-11-06] MEDS: TAMSULOSIN 0.4 MG CAP.ER.24H. PO SCH (08:48)
[2019-11-06] MEDS ORDERED: PANT40TA77 PO (10:02)
[2019-11-06] MEDS ORDERED: FERR325T14 PO (10:02)
[2019-11-06] MEDS ORDERED: ASCO500C9 PO (10:02)
--- NOTE | 2019-11-06 10:06 | PDOC3 ---
Discharge Summary Visit Information Date of Admission: Nov 03, 2019 Date of Discharge: Nov 06, 2019 Admitting Diagnosis: Acute blood loss anemia Final Diagnosis Problems Medical Problems: (1) GI bleed Status: Acute Brief Hospital Course Allergies Allergies Coded Allergies Type Severity Reaction Last Updated Verified No Known Drug Allergies 11/03/19 No Vital Signs Vital Signs Date Time Temp Pulse Resp B/P (MAP) Pulse Ox O2 Delivery O2 Flow Rate FiO2 11/06/19 08:45 67 119/58 11/06/19 07:00 98.2 17 95 Room Air 98.2 11/05/19 08:00 4.0 Lab Results Laboratory Tests Test 11/04/19 11:15 11/05/19 05:55 11/06/19 05:15 Hemoglobin 9.2 g/dL (13.0-17.5) 8.3 g/dL (13.0-17.5) 8.6 g/dL (13.0-17.5) White Blood Count 6.8 x10^3/uL (4.0-11.0) 6.5 x10^3/uL (4.0-11.0) Red Blood Count 2.83 x10^6/uL (4.30-5.70) 2.90 x10^6/uL (4.30-5.70) Hematocrit 23.9 % (39.0-53.0) 24.5 % (39.0-53.0) Mean Corpuscular Volume 84 fL (79-100) 85 fL (79-100) Mean Corpuscular Hemoglobin 29 pg (25-35) 30 pg (25-35) Mean Corpuscular Hemoglobin Concent 35 g/dL (31-37) 35 g/dL (31-37) Red Cell Distribution Width 14.1 % (11.5-14.5) 14.2 % (11.5-14.5) Platelet Count 149 x10^3/uL (140-400) 163 x10^3/uL (140-400) Sodium Level 141 mmol/L (136-145) 143 mmol/L (136-145) Potassium Level 3.4 mmol/L (3.5-5.1) 3.4 mmol/L (3.5-5.1) Chloride Level 109 mmol/L (98-107) 106 mmol/L (98-107) Carbon Dioxide Level 26 mmol/L (21-32) 28 mmol/L (21-32) Anion Gap 6 (6-14) 9 (6-14) Blood Urea Nitrogen 13 mg/dL (8-26) 8 mg/dL (8-26) Creatinine 0.8 mg/dL (0.7-1.3) 0.9 mg/dL (0.7-1.3) Estimated GFR (Cockcroft-Gault) 96.1 83.9 Glucose Level 104 mg/dL (70-99) 99 mg/dL (70-99) Calcium Level 7.9 mg/dL (8.5-10.1) 8.2 mg/dL (8.5-10.1) Neutrophils (%) (Auto) 62 % (31-73) Lymphocytes (%) (Auto) 31 % (24-48) Monocytes (%) (Auto) 5 % (0-9) Eosinophils (%) (Auto) 2 % (0-3) Basophils (%) (Auto) 0 % (0-3) Neutrophils # (Auto) 4.0 x10^3/uL (1.8-7.7) Lymphocytes # (Auto) 2.0 x10^3/uL (1.0-4.8) Monocytes # (Auto) 0.3 x10^3/uL (0.0-1.1) Eosinophils # (Auto) 0.1 x10^3/uL (0.0-0.7) Basophils # (Auto) 0.0 x10^3/uL (0.0-0.2) Laboratory Tests Test 11/06/19 05:15 White Blood Count 6.5 x10^3/uL (4.0-11.0) Red Blood Count 2.90 x10^6/uL (4.30-5.70) Hemoglobin 8.6 g/dL (13.0-17.5) Hematocrit 24.5 % (39.0-53.0) Mean Corpuscular Volume 85 fL (79-100) Mean Corpuscular Hemoglobin 30 pg (25-35) Mean Corpuscular Hemoglobin Concent 35 g/dL (31-37) Red Cell Distribution Width 14.2 % (11.5-14.5) Platelet Count 163 x10^3/uL (140-400) Neutrophils (%) (Auto) 62 % (31-73) Lymphocytes (%) (Auto) 31 % (24-48) Monocytes (%) (Auto) 5 % (0-9) Eosinophils (%) (Auto) 2 % (0-3) Basophils (%) (Auto) 0 % (0-3) Neutrophils # (Auto) 4.0 x10^3/uL (1.8-7.7) Lymphocytes # (Auto) 2.0 x10^3/uL (1.0-4.8) Monocytes # (Auto) 0.3 x10^3/uL (0.0-1.1) Eosinophils # (Auto) 0.1 x10^3/uL (0.0-0.7) Basophils # (Auto) 0.0 x10^3/uL (0.0-0.2) Sodium Level 143 mmol/L (136-145) Potassium Level 3.4 mmol/L (3.5-5.1) Chloride Level 106 mmol/L (98-107) Carbon Dioxide Level 28 mmol/L (21-32) Anion Gap 9 (6-14) Blood Urea Nitrogen 8 mg/dL (8-26) Creatinine 0.9 mg/dL (0.7-1.3) Estimated GFR (Cockcroft-Gault) 83.9 Glucose Level 99 mg/dL (70-99) Calcium Level 8.2 mg/dL (8.5-10.1) Brief Hospital Course Mr Scott is a 68yo M w/ PMHx HTN, HLD, smoker, PUD who p/w dark stools approximately 3 to 4 hours [employer]. Patient states had associated dizziness. 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 Hb 11.5 on admit, dropped to 8.6. EGD on 11/03/2019: gastric ulcer s/p bx/ERBE APC laser and duodenal polyp s/p bx. GI recommends PPI therapy for two months. 11/04 STILL ON CLEARS, some darks stools, less discomfort, advance diet if ok with GI HGB STABLE Consults: GI Hb 8.6 today K3.4. He is feeling much better is been able to walk without shortness of breath or dizziness. Advised on twice daily Protonix for 2 months and will call with follow-up biopsy results to rule out H. pylori as this is his fourth peptic ulcer in his lifetime. He does note with his first ulcer he was told it was due to bacteria 20 years ago. Problem list: GI bleed, acute gastric ulcer s/p bx/ERBE APC laser duodenal polyp s/p bx PPI therapy for two months OBESITY TOBACCO ABUSE DISORDER ACUTE BLOOD LOSS ANEMIA 2 gm drop in hgb overnight ROBERT on CPAP - brought home device Greater than 30 minutes spent on d/c home Discharge Information Condition at Discharge: Improved Follow Up: Weeks (1) Disposition/Orders: D/C to Home Scheduled Amlodipine Besylate (Amlodipine Besylate) 10 Mg Tablet, 10 MG PO DAILY for HTN, (Reported) Entered as Reported by: DANA CABALLERO on 11/03/19218 Last Taken: Unknown Dose on 11/02/19899 Last Action: Continued on 11/03/191157 by DEYSI LEAL MD Ascorbic Acid (Vitamin C) 500 Mg Capsule, 1 CAP PO DAILY for EMA for 30 Days, #30 Ref 1 Prescribed by: SYLVESTER WEST MD on 11/06/19 1002 Ferrous Sulfate (Ferrous Sulfate) 325 Mg Tablet, 1 TAB PO DAILY for Blood loss anemia for 30 Days, #30 Ref 1 Prescribed by: SYLVESTER WEST MD on 11/06/19 1002 Finasteride (Finasteride) 5 Mg Tablet, 1 TAB PO DAILY for BPH, #30 Ref 11 (Reported) Entered as Reported by: DANA CABALLERO on 11/03/19218 Last Taken: Unknown Dose on 11/02/19899 Last Action: Continued on 1157 by DEYSI LEAL MD Pantoprazole Sodium (Pantoprazole Sodium ) 40 Mg Tablet.dr, 40 MG PO BIDAC for Peptic ulcer disease for 30 Days, #60 Ref 1 Prescribed by: SYLVESTER WEST MD on 11/06/19 1002 Pravastatin Sodium (Pravastatin Sodium) 20 Mg Tablet, 1 TAB PO DAILY for HLD, #30 Ref 5 (Reported) Entered as Reported by: DANA CABALLERO on 11/03/19218 Last Taken: Unknown Dose on 11/02/19899 Last Action: Converted on 11/03/191157 by DEYSI LEAL MD Tamsulosin Hcl (Flomax) 0.4 Mg Cap.er.24h, 1 CAP PO DAILY for BPH, #30 Ref 11 (Reported) Entered as Reported by: DANA CABALLERO on 11/03/19218 Last Taken: Unknown Dose on 11/02/19 0900 Last Action: Continued on 11/03/19 1158 by DEYSI LEAL MD [allergy pill] , HS, (Reported) Entered as Reported by: VITA RIVERA on 11/04/192215 Last Action: New Order on 11/04/192215 by VITA RIVERA [multivitamin 50 y/o] , DAILY, (Reported) Entered as Reported by: VITA RIVERA on 11/04/192215 Last Action: New Order on 11/04/192215 by VITA RIVERA [tagamet ] , DAILY, (Reported) Entered as Reported by: VITA RIVERA on 11/04/192215 Last Action: New Order on 11/04/192215 by VITA RIVERA Discontinued Medications Aspirin (Children's Aspirin) 81 Mg Tab.chew, 1 TAB PO DAILY for blood thinner for 30 Days, #30 Ref 0 (Reported) Entered as Reported by: VITA RIVERA on 11/04/192215 Last Action: New Order on 11/04/192215 by VITA RIVERA Justicifation of Admission Dx: Justifications for Admission: Justification of Admission Dx: Yes SYLVESTER WEST MD Nov 06, 2019 10:06
--- NOTE | 2019-11-06 10:41 | NUR ---
SW following. Discussed with RN, pt from home in [place], tolerating GI soft diet. RN advised no SW needs, discharge order for home with self care.
[2019-11-06 10:54] VITALS: BP 110/64
--- NOTE | 2019-11-06 11:43 | PDOC ---
Date of Service: DATE: 11/06/19 TIME: 11:39 Subjective: Subjective: Going home to [place] today - no bleeding, tolerating diet. Objective: Vital Signs: Vital Signs Date Time Temp Pulse Resp B/P (MAP) Pulse Ox O2 Delivery O2 Flow Rate FiO2 11/06/19 10:54 98.0 62 17 110/64 (79) 96 Room Air 98.0 11/05/19 08:00 4.0 Labs: Laboratory Tests Test 11/06/19 05:15 White Blood Count 6.5 x10^3/uL Red Blood Count 2.90 x10^6/uL Hemoglobin 8.6 g/dL Hematocrit 24.5 % Mean Corpuscular Volume 85 fL Mean Corpuscular Hemoglobin 30 pg Mean Corpuscular Hemoglobin Concent 35 g/dL Red Cell Distribution Width 14.2 % Platelet Count 163 x10^3/uL Neutrophils (%) (Auto) 62 % Lymphocytes (%) (Auto) 31 % Monocytes (%) (Auto) 5 % Eosinophils (%) (Auto) 2 % Basophils (%) (Auto) 0 % Neutrophils # (Auto) 4.0 x10^3/uL Lymphocytes # (Auto) 2.0 x10^3/uL Monocytes # (Auto) 0.3 x10^3/uL Eosinophils # (Auto) 0.1 x10^3/uL Basophils # (Auto) 0.0 x10^3/uL Sodium Level 143 mmol/L Potassium Level 3.4 mmol/L Chloride Level 106 mmol/L Carbon Dioxide Level 28 mmol/L Anion Gap 9 Blood Urea Nitrogen 8 mg/dL Creatinine 0.9 mg/dL Estimated GFR (Cockcroft-Gault) 83.9 Glucose Level 99 mg/dL Calcium Level 8.2 mg/dL Imaging: EGD 11/02 EGD with biopsy/APC laser Meds Propofol per anesthesia Pre-op dx melena /acute blood loss anemia post-op dx gastric ulcer s/p bx/ERBE APC laser duodenal polyp s/p bx Plan PPI therapy for two months advance diet in am if Hg stable Serial Hgs PE: GEN: NAD - present LUNGS: CTAB HEART: RRR ABD: S/ND/NT NEURO/PSYCH: A & O 3 A/P: Melena, coffee-ground emesis - resolved Anemia - stable - recurrent; h/o H. pylori reportedly treated, gastrin level pending Duodenal polyp - path pending -- DC per primary on PPI. Follow-up re: pending results - can follow-up w/ PCP and GI in [place]. Justicifation of Admission Dx: Justifications for Admission: Justification of Admission Dx: Yes REX COMER Nov 06, 2019 11:43
--- NOTE | 2019-11-06 12:26 | NUR ---
Patient discharged at this time to . Belongings in room taken with patient.
--- NOTE | 2019-11-06 18:06 | PATHOLOGY ---
[facility] Accession Number: [id number] . 01 Material submitted: . PART A: duodenum - DUODENAL POLYP BIOPSY PART B: stomach - GASTRIC ULCER BIOPSY . 01 Clinical history: . GI BLEED . 02 Diagnosis: A. Duodenal biopsies, duodenal polyp: - Polypoid segments of duodenal mucosa showing focally prominent Mario's glands with mild to moderate active chronic inflammation. . B. Gastric biopsies, gastric ulcer: - Reactive gastropathy with focal slight chronic inflammation. (JPM:piyl 11/06/2019) [facility] 11/06/2019 1406 Local . 02 Comment: Sections of the duodenal polyp biopsy reveal polypoid segments of duodenal mucosa showing focally prominent Mario's glands with mild to moderate active chronic inflammation. There are no adenomatous changes or evidence of malignancy. . Sections of the gastric ulcer biopsy reveal segments of gastric antral mucosa showing congestion, edema, and focal slight chronic inflammation. A properly controlled immunoperoxidase stain for Helicobacter is negative for Helicobacter organisms. The findings are supportive of the diagnosis of a reactive gastropathy. (JPM:pily; 11/06/2019) . Special stain performed: Immunoperoxidase stain for Helicobacter on B1 . 02 Electronically signed: . Rusty Zepeda MD, Pathologist NPI- [id number] . 01 Gross description: . A. The specimen is received in formalin, labeled "Rodcherry, Chris, duodenal polyp BX" and consists of 4 fragments of pink-chapa tissue measuring 0.9 x 0.6 x 0.2 cm in aggregate which are entirely submitted in A1. . B. The specimen is received in formalin, labeled "Rodish, Chris, gastric ulcer BX" and consists of multiple fragments of pink-chapa tissue measuring 1.0 x 0.6 x 0.2 cm in aggregate which are entirely submitted in B1. (SDY; 11/04/2019) [facility] 11/04/2019 1112 Local . 02 Pathologist provided ICD-10: K29.80, K31.9, K29.50 . 02 CPT . 895995, 254995, [id number] Specimen Comment: A courtesy copy of this report has been sent to [phone] Specimen Comment: [id number] Specimen Comment: Report sent to / DR RYDER Performed at: 01 [facility] [address] [facility] [address], [place] [id number] MD Abhijit Lyles MD Phone: [phone] Performed at: 02 [facility] [address] [place], [place] [id number] MD Rusty Zepeda MD Phone: [phone]
== END 2019-11-06 12:26 | disposition home or self-care (01) | DRG 378 ==
LOC: ER 21:58 → 5 NORTH 22:51 → OBSVTOIN 11-03 11:57
PROVIDERS: ADMIT Internal Medicine; ATTEND Internal Medicine
PROC: 0D568ZZ Destruction of Stomach, Via Natural or Artificial Opening Endoscopic (ICD-10-PCS; 2019-11-03)
PROC: 0DB68ZX Excision of Stomach, Via Natural or Artificial Opening Endoscopic, Diagnostic (ICD-10-PCS; principal; 2019-11-03 10:00)
PROC: 0DB98ZX Excision of Duodenum, Via Natural or Artificial Opening Endoscopic, Diagnostic (ICD-10-PCS; 2019-11-03 10:00)
DX: K25.4 Chronic or unspecified gastric ulcer with hemorrhage (principal); D62 Acute posthemorrhagic anemia; K26.4 Chronic or unspecified duodenal ulcer with hemorrhage; I10 Essential (primary) hypertension; E78.5 Hyperlipidemia, unspecified; F17.210 Nicotine dependence, cigarettes, uncomplicated; G47.33 Obstructive sleep apnea (adult) (pediatric); K21.9 Gastro-esophageal reflux disease without esophagitis; K31.7 Polyp of stomach and duodenum; N20.0 Calculus of kidney; N40.0 Benign prostatic hyperplasia without lower urinary tract symptoms; Z80.52 Family history of malignant neoplasm of bladder; Z82.49 Family history of ischemic heart disease and other diseases of the circulatory system; E66.01 Morbid (severe) obesity due to excess calories; Z20.828 Contact with and (suspected) exposure to other viral communicable diseases; Z68.36 Body mass index [BMI] 36.0-36.9, adult
CPT/HCPCS: 36415; 43239; 43255; 71045; 74176; 80048; 80053; 82274; 82941; 84484; 85018; 85025; 85027; 85610; 85730; 87426; 88305; 88342; 94760; 96374; 96375; C9113; G0378; G0379; J2405; J2704; J7030; J7120; 99285-25; U0003-CS